=== PATIENT | female | born 1975 | race Caucasian/White ===

== ENCOUNTER 2018-04-30 16:04 | Inpatient (IN) ==
[2018-04-30] MEDS ORDERED: Morphine Inj 4 MG/ML Vial IV.PUSH ONE ×3 (16:18→18:33)
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
[2018-04-30 16:43] LABS: Baso % (Auto) 0.6 % (0.0-2.0); Eos # (Auto) 0.1 th/mm3 (0.0-0.4); Eos % (Auto) 1.5 % (0.0-4.0); Hematocrit 37.8 % (35.0-46.0); Hemoglobin 12.6 gm/dL (11.6-15.3); Lymph # (Auto) 1.7 th/mm3 (1.0-4.8); Lymph % (Auto) 21.5 % (9.0-44.0); Mean Corpuscular HGB Conc 33.3 % (32.0-36.0); Mean Corpuscular Hemoglobin 29.9 pg (27.0-34.0); Mean Corpuscular Volume 89.9 fL (80.0-100.0); Mean Platelet Volume 7.7 fL (7.0-11.0); Mono # (Auto) 0.6 th/mm3 (0.0-0.9); Mono % (Auto) 7.9 % (0.0-8.0); Neut # (Auto) 5.4 th/mm3 (1.8-7.7); Neut % (Auto) 68.5 % (16.0-70.0); Platelet Count 259 th/mm3 (150-450); Red Cell Distribution Width 13.1 % (11.6-17.2); White Blood Count 7.9 th/mm3 (4.0-11.0)
[2018-04-30 16:46] LABS: Bilirubin,Urine Negative (Negative); Clarity,Urine Clear (Clear); Color,Urine Straw (Yellw/Straw); Glucose,Urine (UA) Negative (Negative); Leukocyte Esterase,Urine Negative (Negative); Mucus,Urine Few /lpf (Occasional); Nitrite,Urine Negative (Negative); Specific Gravity,Urine 1.004 (1.002-1.035); Squamous Epithelial Cell,Urine <1 /hpf (0-5)
[2018-04-30 16:52] LABS: Activated Partial Thrombo Time 27.5 sec (23.4-31.7); Prothrombin Time 9.9 sec (9.8-11.6)
[2018-04-30 16:59] LABS: Albumin 3.8 g/dL (3.4-5.0); Anion Gap 6 meq/L (5-15); Aspartate Aminotransferase 73 U/L (15-37); Blood Urea Nitrogen 11 mg/dL (7-18); Calcium 8.7 mg/dL (8.5-10.1); Carbon Dioxide 25.7 meq/L (21.0-32.0); Chloride 105 meq/L (98-107); Glomerular Filtration Rate Greater Than 89 mL/min (>89); Glucose,Random 98 mg/dL (74-106); Potassium 3.4 meq/L (3.5-5.1); Sodium 137 meq/L (136-145)
[2018-04-30 17:00] LABS: Alanine Aminotransferase 89 U/L (10-53)
[2018-04-30 17:02] LABS: Alkaline Phosphatase 173 U/L (45-117)
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
--- NOTE | 2018-04-30 17:21 | XR ---
EXAM DATE: 04/30/2018 5:16 PM EST AGE/SEX: 43 years / Female INDICATIONS: Shortness of breath. CLINICAL DATA: This is the patient's initial encounter. Patient reports that signs and symptoms have been present for 1 day and indicates a pain score of 0/10. MEDICAL/SURGICAL HISTORY: None. None. COMPARISON: No prior exams available for comparison. FINDINGS: Mild ill-defined parenchymal opacities in the left lower lung zone. No pneumothorax or effusion. Card iomediastinal contours are within normal limits. Osseous structures are grossly intact. CONCLUSION: 1. Mild ill-defined parenchymal opacities in the left lower lung zone, presumably atelectasis. Diffe rential considerations include pulmonary contusion in the setting of trauma or pneumonia in the appro priate clinical setting. Electronically signed by: Emeka Ramirez MD 04/30/2018 5:19 PM EST
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
[2018-04-30] MEDS ORDERED: Bisacodyl 10 MG Supp RECTAL PRN (19:53)
[2018-04-30] MEDS ORDERED: Acetaminophen 325 MG Tablet PO PRN (19:53)
--- NOTE | 2018-04-30 20:10 | P.HPIM ---
History of Present Illness Primary Care Physician: UNKNOWN Inpatient Certification: I certify that the inpatient services were ordered in accordance with Medicare regulations governing the order. This includes certification that hospital inpatient services are reasonable and necessary and in the case of services not specified as inpatient-only under 42 CFR 419.22(n), that they are appropriately provided as inpatient services in accordance to with the 2-midnight benchmark under 43 CFR 412.3(e) Estimated Total Length of Stay (Days): 2 Plans for Post Hospital Care: Not yet determined PMFSH - History History Provided By: Patient, Family Member - Medical History Medical History: Medical History (Last Reviewed 04/30/18 @ 16:25 by Ashley Lemons) H/O: hysterectomy Hypothyroid Lupus (systemic lupus erythematosus) Sjoegren syndrome - Surgical History Surgical History: Surgical History (Last Reviewed 04/30/18 @ 16:25 by Ashley Lemons) Gastric bypass status for obesity Hx of cholecystectomy Hx of tonsillectomy - Tobacco History Second Hand Smoke Exposure: No Smoking Status: Former smoker - Alcohol History How Often Do You Have a Drink Containing Alcohol: Never - Substance Use History Substance History: No History of Abuse - Travel History Recent Travel in the [place] Within the Last 8 Weeks: No Recent Travel Out of the Country Within the Last 8 Weeks: No - Immunization History Tetanus Immunization: <5 Years Medications and Allergies Active Medications: Active Medications Acetaminophen (Tylenol) 650 mg PO Q4H PRN PRN Reason: Temp > 100.4 Al Hydroxide/Mg Hydroxide (Milk Of Magnesia Liq) 30 ml PO Q12H PRN PRN Reason: Mild Constipation Bisacodyl (Dulcolax Supp) 10 mg RECTAL DAILY PRN PRN Reason: SEVERE CONSITIPATION Sodium Chloride (Ns Inj) 1,000 mls @ 100 mls/hr IV.CONT .Q10H HOLA Lactulose (Lactulose Liq) 30 ml PO DAILY PRN PRN Reason: SEVERE CONSITIPATION Morphine Sulfate (Morphine Inj) 2 mg IV.PUSH Q4H PRN PRN Reason: PAIN 6-10 Ondansetron HCl (Zofran Inj) 4 mg IV.PUSH Q6H PRN PRN Reason: NAUSEA OR VOMITING Senna/Docusate Sodium (Gracie-Colace) 1 tab PO BID HOLA Sennosides (Senokot) 17.2 mg PO Q12H PRN PRN Reason: Moderate Constipation Sodium Chloride (Ns Flush) 2 ml IV.FLUSH BID HOLA Sodium Chloride (Ns Flush) 2 ml IV.FLUSH PRN PRN PRN Reason: FLUSH AFTER USING IV ACCESS Allergies Allergy/AdvReac Type Severity Reaction Status Date / Time codeine Allergy Itching Verified 04/30/18 16:30 Home Medications Medication Instructions Recorded Confirmed Type calcium carbonate [Calcium 500] 500 mg PO Q4-6H 12/11/17 04/30/18 History cyclobenzaprine 7.5 mg PO TID PRN 12/11/17 04/30/18 History docusate sodium [Stool Softener] 50 mg PO BID 12/11/17 04/30/18 History hydroxychloroquine [Plaquenil] 200 mg PO DAILY 12/11/17 04/30/18 History mycophenolate mofetil [CellCept] 500 mg PO BID 12/11/17 04/30/18 History tramadol 50 mg PO Q4-6H PRN 12/11/17 04/30/18 History levothyroxine 112 mcg PO DAILY 04/30/18 04/30/18 History Exam Vital signs: Vital Signs 04/30/18 16:24 04/30/18 16:54 04/30/18 20:08 Temperature 98.7 F Pulse Rate 73 Respiratory Rate 14 16 18 Blood Pressure 120/67 Pulse Oximetry 98 Intake & Output 04/30/18 04/30/18 05/01/18 06:59 18:59 06:59 Weight 70.307 kg Results - Labs CBC & Chem 7: 04/30/18 16:30 04/30/18 16:30 Labs: Short CBC 04/30/18 Range/Units 16:30 WBC 7.9 (4.0-11.0) th/mm3 Hgb 12.6 (11.6-15.3) gm/dL Hct 37.8 (35.0-46.0) % Plt Count 259 (150-450) th/mm3 BMP 04/30/18 16:30 Sodium 137 Potassium 3.4 L Chloride 105 Carbon Dioxide 25.7 BUN 11 Creatinine 0.61 Calcium 8.7 Liver Function 04/30/18 Range/Units 16:30 Total Bilirubin 0.3 (0.2-1.0) mg/dL AST 73 H (15-37) U/L ALT 89 H (10-53) U/L Alkaline Phosphatase 173 H (45-117) U/L Albumin 3.8 (3.4-5.0) g/dL Urine 04/30/18 Range/Units 16:30 Urine Color Straw (Yellw/Straw) Urine Clarity Clear (Clear) Urine pH 6.0 (5.0-8.5) Ur Specific [place] 1.004 (1.002-1.035) Urine Protein Negative (Neg-Trace) mg/dL Urine Glucose (UA) Negative (Negative) mg/dL - Imaging Impressions Knee X-Ray 04/30/18 16:17 CONCLUSION: 1. Impacted comminuted proximal tibial fracture extending to the tibial plateau and articular surface with associated proximal fibular fracture. Chest X-Ray 04/30/18 16:18 CONCLUSION: 1. Mild ill-defined parenchymal opacities in the left lower lung zone, presumably atelectasis. Differential considerations include pulmonary contusion in the setting of trauma or pneumonia in the appropriate clinical setting. Knee CT 04/30/18 18:48 CONCLUSION: 1. Comminuted lateral tibial plateau/proximal tibial fracture with associated comminuted fracture of the proximal fibula, as above. Chest CT 04/30/18 19:08 CONCLUSION: 1. No acute CT abnormality in the thorax. 2. 6 mm groundglass nodule in the left lower lobe. Consider follow-up CT examination in 6-12 months per 2017 Fleischner criteria. Caprini VTE Risk Assessment Caprini Risk Assessment Model: Point Value = 1 Point Value = 2 Point Value = 3 Point Value = 5 Age 41-60 Minor surgery BMI > 25 kg/m2 Swollen legs Varicose veins or History of unexplained or recurrent spontaneous Oral contraceptives or hormone replacement Sepsis (< 1 month) Serious lung disease, including pneumonia (< 1 month) Abnormal pulmonary function Acute myocardial infarction Congestive heart failure (< 1 month) History of inflammatory bowel disease Medical patient at bed rest Age 61-74 Arthroscopic surgery Major open surgery (> 45 min) Laparoscopic surgery (> 45 min) Malignancy Confined to bed (> 72 hours) Immobilizing plaster cast Central venous access Age >= 75 History of VTE Family history of VTE Factor V Leiden Prothrombin [id number] Lupus anticoagulant Anticardiolipin antibodies Elevated serum homocysteine Heparin-induced thrombocytopenia Other congenital or acquired thrombophilia Stroke (< 1 month) Elective arthroplasty Hip, pelvis, or leg fracture Acute spinal cord injury (< 1 month) Prophylaxis Regimen: Total Risk Factor Score Risk Level Prophylaxis Regimen 0-1 Low Early ambulation 2 Moderate Order ONE of the following: *Sequential Compression Device (SCD) *Heparin 5000 units SQ BID 3-4 Higher Order ONE of the following medications: *Heparin 5000 units SQ TID *Enoxaparin/Lovenox 40 mg SQ daily (WT < 150 kg, CrCl > 30 mL/min) *Enoxaparin/Lovenox 30 mg SQ daily (WT < 150 kg, CrCl > 10-29 mL/min) *Enoxaparin/Lovenox 30 mg SQ BID (WT < 150 kg, CrCl > 30 mL/min) AND/OR *Sequential Compression Device (SCD) 5 or more Highest Order ONE of the following medications: *Heparin 5000 units SQ TID (Preferred with Epidurals) *Enoxaparin/Lovenox 40 mg SQ daily (WT < 150 kg, CrCl > 30 mL/min) *Enoxaparin/Lovenox 30 mg SQ daily (WT < 150 kg, CrCl > 10-29 mL/min) *Enoxaparin/Lovenox 30 mg SQ BID (WT < 150 kg, CrCl > 30 mL/min) AND *Sequential Compression Device (SCD)
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
[2018-04-30] MEDS: Sod Chloride 0.9% Inj 1,000 ML IV.CONT SCH (22:07)
[2018-04-30] MEDS: Senna/Docusate Sodium 8.6/50 MG Tablet PO SCH (22:09)
[2018-04-30] MEDS: Morphine Inj 4 MG/ML Vial IV.PUSH PRN (22:36)
[2018-05-01] MEDS: Morphine Inj 4 MG/ML Vial IV.PUSH PRN ×5 (03:44→23:45)
[2018-05-01] MEDS ORDERED: Chlorhexidine Gluconate 2% 1 Pack (2 Cloths) TOPICAL ONE (04:36)
[2018-05-01] MEDS ORDERED: Sodium Chlor 0.9% Inj 500 ML IV.SIG SCH (05:00)
[2018-05-01] MEDS: Levothyroxine 112 MCG Tablet PO SCH (06:08)
[2018-05-01] MEDS: Sod Chloride 0.9% Inj 1,000 ML IV.CONT SCH (06:09)
[2018-05-01 08:00] LABS: Baso % (Auto) 0.4 % (0.0-2.0); Eos # (Auto) 0.1 th/mm3 (0.0-0.4); Eos % (Auto) 1.9 % (0.0-4.0); Hematocrit 33.3 % (35.0-46.0); Hemoglobin 11.2 gm/dL (11.6-15.3); Lymph # (Auto) 1.3 th/mm3 (1.0-4.8); Lymph % (Auto) 19.6 % (9.0-44.0); Mean Corpuscular HGB Conc 33.6 % (32.0-36.0); Mean Corpuscular Hemoglobin 29.5 pg (27.0-34.0); Mean Corpuscular Volume 87.9 fL (80.0-100.0); Mean Platelet Volume 8.5 fL (7.0-11.0); Mono # (Auto) 0.6 th/mm3 (0.0-0.9); Mono % (Auto) 9.2 % (0.0-8.0); Neut # (Auto) 4.7 th/mm3 (1.8-7.7); Neut % (Auto) 68.9 % (16.0-70.0); Platelet Count 212 th/mm3 (150-450); Red Blood Count 3.79 mil/mm3 (4.00-5.30); Red Cell Distribution Width 13.2 % (11.6-17.2); White Blood Count 6.8 th/mm3 (4.0-11.0)
[2018-05-01] MEDS: Hydroxychloroquine 200 MG Tablet PO SCH ×2 (08:21→20:15)
[2018-05-01] MEDS: Senna/Docusate Sodium 8.6/50 MG Tablet PO SCH ×2 (08:21→20:15)
[2018-05-01 08:27] LABS: Alanine Aminotransferase 364 U/L (10-53); Albumin 3.1 g/dL (3.4-5.0); Alkaline Phosphatase 280 U/L (45-117); Anion Gap 4 meq/L (5-15); Aspartate Aminotransferase 603 U/L (15-37); Blood Urea Nitrogen 12 mg/dL (7-18); Calcium 7.2 mg/dL (8.5-10.1); Carbon Dioxide 26.8 meq/L (21.0-32.0); Chloride 110 meq/L (98-107); Glomerular Filtration Rate Greater Than 89 mL/min (>89); Glucose,Random 94 mg/dL (74-106); Potassium 3.8 meq/L (3.5-5.1); Sodium 141 meq/L (136-145)
[2018-05-01 12:30] LABS: Hepatitits B Surface Antigen Nonreactive (Nonreactive)
[2018-05-01 12:51] LABS: Hepatitis A IgM Antibody Nonreactive (Nonreactive)
[2018-05-01] MEDS: Pilocarpine HCl 5 MG Tablet PO SCH ×2 (13:34→18:25)
--- NOTE | 2018-05-01 13:49 | P.PNFP ---
Subjective Interval history: She had no acute events overnight. She complains of continued pain to the right lower extremity. Ice therapy machine in place. The patient spoke to orthopedics this morning who plans on doing surgery due to the extent of the swelling. She denies fever, chills, lightheadedness, dizziness, shortness of breath, chest pain, palpitations, abdominal pain, nausea, vomiting. She states that she has had elevated liver enzymes in the past. She has a cholecystectomy and reports during the operation they "nicked her hepatic duct. " She is unsure how high her liver enzymes had been elevated, however notes that this issue is not new. <Mega Kidd - 05/01/18 13:48> Results - Labs Result diagrams: 05/02/18 05:40 05/02/18 05:00 <Timmy Santana - 05/02/18 15:03> Abnormal lab results 05/02/18 05/02/18 Range/Units 05:00 05:40 RBC 3.68 L (4.00-5.30) mil/mm3 Hgb 11.0 L (11.6-15.3) gm/dL Hct 32.7 L (35.0-46.0) % Neut % (Auto) 82.3 H (16.0-70.0) % Lymph # (Auto) 0.8 L (1.0-4.8) th/mm3 BUN 5 L (7-18) mg/dL Random Glucose 109 H (74-106) mg/dL Calcium 8.3 L D (8.5-10.1) mg/dL AST 410 H (15-37) U/L ALT 385 H (10-53) U/L Alkaline Phosphatase 327 H (45-117) U/L Albumin 3.2 L (3.4-5.0) g/dL Short CBC 05/02/18 Range/Units 05:40 WBC 8.4 (4.0-11.0) th/mm3 Hgb 11.0 L (11.6-15.3) gm/dL Hct 32.7 L (35.0-46.0) % Plt Count 213 (150-450) th/mm3 BMP 05/02/18 05:00 Sodium 139 Potassium 4.0 Chloride 104 Carbon Dioxide 28.1 BUN 5 L Creatinine 0.56 Calcium 8.3 L D Liver Function 12/03/18 Range/Units 05:00 Total Bilirubin 0.9 (0.2-1.0) mg/dL AST 410 H (15-37) U/L ALT 385 H (10-53) U/L Alkaline Phosphatase 327 H (45-117) U/L Albumin 3.2 L (3.4-5.0) g/dL <Timmy Santana - 05/02/18 15:03> Abnormal lab results 04/30/18 04/30/18 05/01/18 Range/Units 16:30 16:30 06:59 RBC 3.79 L (4.00-5.30) mil/mm3 Hgb 11.2 L (11.6-15.3) gm/dL Hct 33.3 L (35.0-46.0) % Leslie % (Auto) 9.2 H (0.0-8.0) % Potassium 3.4 L (3.5-5.1) meq/L Chloride (98-107) meq/L Anion Gap (5-15) meq/L Creatinine (0.50-1.00) mg/dL Calcium (8.5-10.1) mg/dL Calcium Adj for Albumin (8.5-10.1) mg/dL AST 73 H (15-37) U/L ALT 89 H (10-53) U/L Alkaline Phosphatase 173 H (45-117) U/L Total Protein (6.4-8.2) g/dL Albumin (3.4-5.0) g/dL Urine Ketones Trace H (Negative) mg/dL Urine Mucus Few H (Occasional) /lpf 05/01/18 Range/Units 06:59 RBC (4.00-5.30) mil/mm3 Hgb (11.6-15.3) gm/dL Hct (35.0-46.0) % Leslie % (Auto) (0.0-8.0) % Potassium (3.5-5.1) meq/L Chloride 110 H (98-107) meq/L Anion Gap 4 L (5-15) meq/L Creatinine 0.48 L (0.50-1.00) mg/dL Calcium 7.2 L* D (8.5-10.1) mg/dL Calcium Adj for Albumin 7.8 L (8.5-10.1) mg/dL AST 603 H (15-37) U/L ALT 364 H (10-53) U/L Alkaline Phosphatase 280 H (45-117) U/L Total Protein 6.0 L D (6.4-8.2) g/dL Albumin 3.1 L D (3.4-5.0) g/dL Urine Ketones (Negative) mg/dL Urine Mucus (Occasional) /lpf Short CBC 04/30/18 05/01/18 Range/Units 16:30 06:59 WBC 7.9 6.8 (4.0-11.0) th/mm3 Hgb 12.6 11.2 L (11.6-15.3) gm/dL Hct 37.8 33.3 L (35.0-46.0) % Plt Count 259 212 (150-450) th/mm3 BMP 04/30/18 05/01/18 16:30 06:59 Sodium 137 141 Potassium 3.4 L 3.8 Chloride 105 110 H Carbon Dioxide 25.7 26.8 BUN 11 12 Creatinine 0.61 0.48 L Calcium 8.7 7.2 L* D Liver Function 04/30/18 05/01/18 Range/Units 16:30 06:59 Total Bilirubin 0.3 0.5 (0.2-1.0) mg/dL AST 73 H 603 H (15-37) U/L ALT 89 H 364 H (10-53) U/L Alkaline Phosphatase 173 H 280 H (45-117) U/L Albumin 3.8 3.1 L D (3.4-5.0) g/dL Urine 04/30/18 Range/Units 16:30 Urine Color Straw (Yellw/Straw) Urine Clarity Clear (Clear) Urine pH 6.0 (5.0-8.5) Ur Specific [place] 1.004 (1.002-1.035) Urine Protein Negative (Neg-Trace) mg/dL Urine Glucose (UA) Negative (Negative) mg/dL <Mega Kidd - 05/01/18 13:48> - Imaging Impressions Liver Ultrasound 05/01/18 00:00 CONCLUSION: 1. Mild hepatomegaly. 2. Poor visualization of the pancreas. <Timmy Santana - 05/02/18 15:03> Impressions Knee X-Ray 04/30/18 16:17 CONCLUSION: 1. Impacted comminuted proximal tibial fracture extending to the tibial plateau and articular surface with associated proximal fibular fracture. Chest X-Ray 04/30/18 16:18 CONCLUSION: 1. Mild ill-defined parenchymal opacities in the left lower lung zone, presumably atelectasis. Differential considerations include pulmonary contusion in the setting of trauma or pneumonia in the appropriate clinical setting. Knee CT 04/30/18 18:48 CONCLUSION: 1. Comminuted lateral tibial plateau/proximal tibial fracture with associated comminuted fracture of the proximal fibula, as above. Chest CT 04/30/18 19:08 CONCLUSION: 1. No acute CT abnormality in the thorax. 2. 6 mm groundglass nodule in the left lower lobe. Consider follow-up CT examination in 6-12 months per 2017 Fleischner criteria. <Mega Kidd - 05/01/18 13:48> Physical Exam Vital signs: Vital Signs 05/01/18 16:00 05/01/18 20:16 05/01/18 23:19 Temperature 98.4 F 98.3 F 98.0 F Pulse Rate 80 83 85 Respiratory Rate 18 17 18 Blood Pressure 112/51 L 104/56 L 103/59 L Pulse Oximetry 98 97 100 05/02/18 03:11 05/02/18 08:00 05/02/18 12:00 Temperature 97.3 F L 97.9 F 98.4 F Pulse Rate 83 86 85 Respiratory Rate 17 16 16 Blood Pressure 104/55 L 105/50 L 106/57 L Pulse Oximetry 99 96 100 Intake & Output 05/01/18 05/02/18 05/02/18 18:59 06:59 18:59 Intake Total 300 / 300 480 / 480 Output Total 750 / 750 Balance -450 / -450 480 / 480 Weight 70.3 kg Intake: IV 300 / 300 NS Inj 1,000 ML @ 100 mls/hr IV 300 / 300 .CONT .Q10H [facility] Rx#:[id number] Oral 480 / 480 Output: Urine 750 / 750 Other: # Voids 2 2 Date of Last Bowel Movement 04/30/18 04/30/18 04/30/18 # Bowel Movements 0 <Timmy Santana - 05/02/18 15:03> Vital Signs 12/01/18 16:24 04/30/18 16:54 04/30/18 20:08 Temperature 98.7 F Pulse Rate 73 Respiratory Rate 14 16 18 Blood Pressure 120/67 Pulse Oximetry 98 04/30/18 20:52 04/30/18 21:28 05/01/18 00:00 Temperature 97.6 F 97.7 F Pulse Rate 88 76 83 Respiratory Rate 16 17 18 Blood Pressure 112/51 L 104/52 L 109/52 L Pulse Oximetry 99 99 98 05/01/18 04:22 05/01/18 08:00 05/01/18 12:00 Temperature 97.7 F 97.8 F 97.6 F Pulse Rate 76 73 78 Respiratory Rate 18 16 18 Blood Pressure 91/46 L 104/50 L 104/50 L Pulse Oximetry 99 99 99 Intake & Output 04/30/18 05/01/18 05/01/18 18:59 06:59 18:59 Intake Total 597 / 597 Balance 597 / 597 Weight 70.307 kg 70.307 kg Intake: IV 597 / 597 NS Inj 1,000 ML @ 100 mls/hr IV 597 / 597 .CONT .Q10H [facility] Rx#:[id number] Other: # Voids 1 Date of Last Bowel Movement 04/30/18 04/30/18 Weight On Admission 70.307 kg <Mega Kidd - 05/01/18 13:48> Narrative: General: Well-developed, alert, and in no acute distress. Appears stated age HEENT: Atraumatic, PERRL, non-icteric sclera and no conjunctival injection, moist mucous membranes Neck: Supple, trachea midline Cardiac: Regular rate and rhythm without murmur Pulmonary: Non-labored breathing. Lungs clear to auscultation bilaterally with good air movement Abdomen: Normal bowel sounds, soft and non-tender without rebound or guarding Extremities: No pedal edema, 2+ pedal pulses, capillary refill less than 2 seconds. Neurovascularly intact distal to the injury. Ice therapy machine is in place over the right leg. <Mega Kidd - 05/01/18 13:48> Assessment and Plan - Assessment (1) Closed fracture of proximal end of right tibia Code(s): S82.101A - Unspecified fracture of upper end of right tibia, initial encounter for closed fracture Status: Acute (2) Hypothyroid Code(s): E03.9 - Hypothyroidism, unspecified Status: Acute (3) Sjogrens syndrome Code(s): M35.00 - Sicca syndrome, unspecified Status: Acute (4) Lupus Code(s): L93.0 - Discoid lupus erythematosus Status: Acute (5) Elevated liver enzymes Code(s): R74.8 - Abnormal levels of other serum enzymes Status: Acute <Timmy Santana - 05/02/18 15:03> (1) Closed fracture of proximal end of right tibia Code(s): S82.101A - Unspecified fracture of upper end of right tibia, initial encounter for closed fracture Status: Acute Plan: Closed fracture of proximal end of her right tibia and fibula. -Orthopedic surgery consulted, appreciate recommendations -Original plan had been for surgical intervention today, however she states this has been delayed due to the extent of the swelling -Ice therapy machine in place (2) Hypothyroid Code(s): E03.9 - Hypothyroidism, unspecified Status: Acute Plan: History of hypothyroidism -Continue levothyroxine 112 mcg daily -Normal TSH (3) Sjogrens syndrome Code(s): M35.00 - Sicca syndrome, unspecified Status: Acute Plan: History of Sjogren's. -Monitor and treat symptoms as needed (4) Lupus Code(s): L93.0 - Discoid lupus erythematosus Status: Acute Plan: History of lupus. -Continue home medications, CellCept, Plaquenil -Reports no current symptoms (5) Elevated liver enzymes Code(s): R74.8 - Abnormal levels of other serum enzymes Status: Acute Plan: AST 79, ALT 89, and alk phos 173 yesterday. Today was found to be AST of 603, ALT of 364, and alk phos of 280. -Lowest MAP was 61, making shock liver unlikely -We are unsure if this new elevation is real, repeat CMP ordered. -She does report history of liver damage secondary to a "nicked hepatic duct" during a cholecystectomy -Ultrasound of the right upper quadrant ordered -Hepatitis panel negative -If liver enzymes remain elevated and no causes found, will consider her autoimmune diseases as a cause <Mega Kidd - 05/01/18 13:49> - Assessment and Plan Fluids: Adequate p.o. intake Electrolytes: monitor and replete as needed Nutrition: Regular diet GI prophylaxis: not indicated VTE prophylaxis: SCD on left side <Mega Kidd - 05/01/18 13:54> - Attending Attestation See the residents documentation for details. I saw and evaluated the patient regarding the gould portions of this evaluation and agree with the residents findings and plans as written. Parts of this note were created using [employer] voice recognition software program. While efforts were made to correct any mistakes made by this software, some mistakes, errors, and omissions may remain in the final note that were not caught when the note was originally created. Plan of care was discussed and agreed upon with the patient as specifically documented in the above note. An opportunity to ask questions with explanation was provided. Patient voiced understanding on all information reviewed and discussed. <Timmy Santana - 05/02/18 15:03> <Mega Kidd - Last Filed: 05/01/18 13:49> (1) Closed fracture of proximal end of right tibia Qualifiers: Encounter type: initial encounter Fracture morphology: unspecified fracture morphology Qualified Code(s): S82.101A - Unspecified fracture of upper end of right tibia, initial encounter for closed fracture <Timmy Santana - Last Filed: 05/02/18 15:03> (1) Closed fracture of proximal end of right tibia Qualifiers: Qualified Code(s): S82.101A - Unspecified fracture of upper end of right tibia , initial encounter for closed fracture <Mega Kidd - Last Filed: 05/01/18 13:49> (1) Closed fracture of proximal end of right tibia Qualifiers: Encounter type: initial encounter Fracture morphology: unspecified fracture morphology Qualified Code(s): S82.101A - Unspecified fracture of upper end of right tibia, initial encounter for closed fracture <Timmy Santana - Last Filed: 05/02/18 15:03> (1) Closed fracture of proximal end of right tibia Qualifiers: Qualified Code(s): S82.101A - Unspecified fracture of upper end of right tibia , initial encounter for closed fracture
[2018-05-01 14:07] LABS: Albumin 3.2 g/dL (3.4-5.0); Anion Gap 3 meq/L (5-15); Aspartate Aminotransferase 493 U/L (15-37); Blood Urea Nitrogen 9 mg/dL (7-18); Calcium 7.5 mg/dL (8.5-10.1); Carbon Dioxide 29.7 meq/L (21.0-32.0); Chloride 109 meq/L (98-107); Glomerular Filtration Rate Greater Than 89 mL/min (>89); Glucose,Random 83 mg/dL (74-106); Potassium 4.2 meq/L (3.5-5.1); Sodium 142 meq/L (136-145)
[2018-05-01 14:09] LABS: Alanine Aminotransferase 361 U/L (10-53); Alkaline Phosphatase 286 U/L (45-117); Total Protein 6.2 g/dL (6.4-8.2)
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
--- NOTE | 2018-05-01 15:52 | US ---
EXAM DATE: 05/01/2018 3:42 PM EST AGE/SEX: 43 years / Female INDICATIONS: Elevated lab values. CLINICAL DATA: This is the patient's initial encounter. Patient reports that signs and symptoms have been present for 2 days and indicates a pain score of 2/10. MEDICAL/SURGICAL HISTORY: Hypothyroidism. Lupus. Hysterectomy. Cholecystectomy. Tonsillectom y. Gastric bypass. COMPARISON: No prior exams available for comparison. MEASUREMENTS: Liver:__ 16.1 cm. Common Bile Duct:__ 6mm. Right Kidney:__ 11.6 x 5.7 x 4.6 cm. FINDINGS: Liver: Mild hepatomegaly is noted. Normal echotexture without focal lesion or ductal dilatation. Portal Vein: Hepatopedal flow seen in portal vein. Common Duct: No intraluminal mass or stone visualized. Gallbladder: Surgically absent. Pancreas: Not well visualized. Right Kidney: Normal echotexture and cortical thickness. No mass or hydronephrosis. Other: None. CONCLUSION: 1. Mild hepatomegaly. 2. Poor visualization of the pancreas. Electronically signed by: Kwasi Campo MD 05/01/2018 3:51 PM EST
[2018-05-01] MEDS ORDERED: Morphine Inj 4 MG/ML Vial IV.PUSH PRN ×2 (18:17→20:00)
[2018-05-01] MEDS: Montelukast 10 MG Tablet PO SCH (18:24)
[2018-05-02] MEDS: Docusate Sodium Liq 100 MG/10 ML UDC PO SCH ×3 (01:03→21:09)
[2018-05-02] MEDS: Morphine Inj 4 MG/ML Vial IV.PUSH PRN ×5 (03:23→20:17)
[2018-05-02 06:29] LABS: Baso % (Auto) 0.3 % (0.0-2.0); Eos % (Auto) 0.5 % (0.0-4.0); Hematocrit 32.7 % (35.0-46.0); Lymph # (Auto) 0.8 th/mm3 (1.0-4.8); Lymph % (Auto) 9.3 % (9.0-44.0); Mean Corpuscular HGB Conc 33.5 % (32.0-36.0); Mean Corpuscular Hemoglobin 29.8 pg (27.0-34.0); Mean Corpuscular Volume 88.9 fL (80.0-100.0); Mean Platelet Volume 8.4 fL (7.0-11.0); Mono # (Auto) 0.6 th/mm3 (0.0-0.9); Mono % (Auto) 7.6 % (0.0-8.0); Neut # (Auto) 6.9 th/mm3 (1.8-7.7); Neut % (Auto) 82.3 % (16.0-70.0); Platelet Count 213 th/mm3 (150-450); Red Blood Count 3.68 mil/mm3 (4.00-5.30); Red Cell Distribution Width 13.4 % (11.6-17.2); White Blood Count 8.4 th/mm3 (4.0-11.0)
[2018-05-02] MEDS ORDERED: Ketorolac Inj 30 MG/ML (IVP) Vial IV.PUSH PRN (06:29)
[2018-05-02] MEDS ORDERED: Enoxaparin Inj 30 MG/0.3 ML Syringe SQ ONE (06:31)
[2018-05-02] MEDS: Levothyroxine 112 MCG Tablet PO SCH (06:46)
[2018-05-02 06:55] LABS: Alanine Aminotransferase 385 U/L (10-53); Albumin 3.2 g/dL (3.4-5.0); Alkaline Phosphatase 327 U/L (45-117); Anion Gap 7 meq/L (5-15); Aspartate Aminotransferase 410 U/L (15-37); Blood Urea Nitrogen 5 mg/dL (7-18); Calcium 8.3 mg/dL (8.5-10.1); Carbon Dioxide 28.1 meq/L (21.0-32.0); Chloride 104 meq/L (98-107); Glomerular Filtration Rate Greater Than 89 mL/min (>89); Glucose,Random 109 mg/dL (74-106); Sodium 139 meq/L (136-145); Total Protein 6.5 g/dL (6.4-8.2)
[2018-05-02] MEDS: Senna/Docusate Sodium 8.6/50 MG Tablet PO SCH ×2 (09:23→21:09)
[2018-05-02] MEDS: Pilocarpine HCl 5 MG Tablet PO SCH ×3 (09:23→17:36)
[2018-05-02] MEDS: Hydroxychloroquine 200 MG Tablet PO SCH ×2 (09:23→21:08)
--- NOTE | 2018-05-02 12:15 | P.PNFP ---
Subjective Interval history: Patient seen and examined this morning. Denies nausea, vomiting, fever, chills, abdominal pain, chest pain, shortness of breath, lightheadedness, dizziness. Patient reports continued pain in her right leg. Notes normal sensation in her feet, increased pain under her right heel. Discussed elevated LFTs with patient. She reports that after her cholecystectomy with injured right biliary duct she has had issues with elevated LFTs. She reports that she has been to an outpatient GI with LFTs in the 400s. States that he told her they will likely never return to normal. However they did down trend from 400 previously. No acute events overnight. No other complaints today. <Mike Mendoza - 05/02/18 12:15> Results - Labs Result diagrams: 05/02/18 05:40 05/02/18 05:00 <Timmy Santana - 05/02/18 15:27> Abnormal lab results 05/02/18 05/02/18 Range/Units 05:00 05:40 RBC 3.68 L (4.00-5.30) mil/mm3 Hgb 11.0 L (11.6-15.3) gm/dL Hct 32.7 L (35.0-46.0) % Neut % (Auto) 82.3 H (16.0-70.0) % Lymph # (Auto) 0.8 L (1.0-4.8) th/mm3 BUN 5 L (7-18) mg/dL Random Glucose 109 H (74-106) mg/dL Calcium 8.3 L D (8.5-10.1) mg/dL AST 410 H (15-37) U/L ALT 385 H (10-53) U/L Alkaline Phosphatase 327 H (45-117) U/L Albumin 3.2 L (3.4-5.0) g/dL Short CBC 05/02/18 Range/Units 05:40 WBC 8.4 (4.0-11.0) th/mm3 Hgb 11.0 L (11.6-15.3) gm/dL Hct 32.7 L (35.0-46.0) % Plt Count 213 (150-450) th/mm3 [facility] 05/02/18 05:00 Sodium 139 Potassium 4.0 Chloride 104 Carbon Dioxide 28.1 BUN 5 L Creatinine 0.56 Calcium 8.3 L D Liver Function 05/02/18 Range/Units 05:00 Total Bilirubin 0.9 (0.2-1.0) mg/dL AST 410 H (15-37) U/L ALT 385 H (10-53) U/L Alkaline Phosphatase 327 H (45-117) U/L Albumin 3.2 L (3.4-5.0) g/dL <SantanaTimmy - 05/02/18 15:27> Abnormal lab results 05/01/18 05/02/18 05/02/18 Range/Units 11:44 05:00 05:40 RBC 3.68 L (4.00-5.30) mil/mm3 Hgb 11.0 L (11.6-15.3) gm/dL Hct 32.7 L (35.0-46.0) % Neut % (Auto) 82.3 H (16.0-70.0) % Lymph # (Auto) 0.8 L (1.0-4.8) th/mm3 Chloride 109 H (98-107) meq/L Anion Gap 3 L (5-15) meq/L BUN 5 L (7-18) mg/dL Creatinine 0.48 L (0.50-1.00) mg/dL Random Glucose 109 H (74-106) mg/dL Calcium 7.5 L 8.3 L D (8.5-10.1) mg/dL AST 493 H 410 H (15-37) U/L ALT 361 H 385 H (10-53) U/L Alkaline Phosphatase 286 H 327 H (45-117) U/L Total Protein 6.2 L (6.4-8.2) g/dL Albumin 3.2 L 3.2 L (3.4-5.0) g/dL Short CBC 05/02/18 Range/Units 05:40 WBC 8.4 (4.0-11.0) th/mm3 Hgb 11.0 L (11.6-15.3) gm/dL Hct 32.7 L (35.0-46.0) % Plt Count 213 (150-450) th/mm3 BMP 05/01/18 05/02/18 11:44 05:00 Sodium 142 139 Potassium 4.2 4.0 Chloride 109 H 104 Carbon Dioxide 29.7 28.1 BUN 9 5 L Creatinine 0.48 L 0.56 Calcium 7.5 L 8.3 L D Liver Function 05/01/18 05/02/18 Range/Units 11:44 05:00 Total Bilirubin 0.3 0.9 (0.2-1.0) mg/dL AST 493 H 410 H (15-37) U/L ALT 361 H 385 H (10-53) U/L Alkaline Phosphatase 286 H 327 H (45-117) U/L Albumin 3.2 L 3.2 L (3.4-5.0) g/dL <Mike Mendoza - 05/02/18 12:15> - Imaging Impressions Liver Ultrasound 05/01/18 00:00 CONCLUSION: 1. Mild hepatomegaly. 2. Poor visualization of the pancreas. <Timmy Santana - 05/02/18 15:27> Impressions Liver Ultrasound 05/01/18 00:00 CONCLUSION: 1. Mild hepatomegaly. 2. Poor visualization of the pancreas. <Mike Mendoza - 05/02/18 12:15> Physical Exam Vital signs: Vital Signs 05/01/18 16:00 05/01/18 20:16 05/01/18 23:19 Temperature 98.4 F 98.3 F 98.0 F Pulse Rate 80 83 85 Respiratory Rate 18 17 18 Blood Pressure 112/51 L 104/56 L 103/59 L Pulse Oximetry 98 97 100 05/02/18 03:11 05/02/18 08:00 05/02/18 12:00 Temperature 97.3 F L 97.9 F 98.4 F Pulse Rate 83 86 85 Respiratory Rate 17 16 16 Blood Pressure 104/55 L 105/50 L 106/57 L Pulse Oximetry 99 96 100 Intake & Output 05/01/18 05/02/18 05/02/18 18:59 06:59 18:59 Intake Total 300 / 300 480 / 480 Output Total 750 / 750 Balance -450 / -450 480 / 480 Weight 70.3 kg Intake: IV 300 / 300 NS Inj 1,000 ML @ 100 mls/hr IV 300 / 300 .CONT .Q10H [facility] Rx#:[id number] Oral 480 / 480 Output: Urine 750 / 750 Other: # Voids 2 2 Date of Last Bowel Movement 04/30/18 04/30/18 04/30/18 # Bowel Movements 0 <Timmy Santana - 05/02/18 15:27> Vital Signs 05/01/18 16:00 05/01/18 20:16 05/01/18 23:19 Temperature 98.4 F 98.3 F 98.0 F Pulse Rate 80 83 85 Respiratory Rate 18 17 18 Blood Pressure 112/51 L 104/56 L 103/59 L Pulse Oximetry 98 97 100 05/02/18 03:11 05/02/18 08:00 Temperature 97.3 F L 97.9 F Pulse Rate 83 86 Respiratory Rate 17 16 Blood Pressure 104/55 L 105/50 L Pulse Oximetry 99 96 Intake & Output 05/01/18 05/02/18 05/02/18 18:59 06:59 18:59 Intake Total 300 / 300 480 / 480 Output Total 750 / 750 Balance -450 / -450 480 / 480 Weight 70.3 kg Intake: IV 300 / 300 NS Inj 1,000 ML @ 100 mls/hr IV 300 / 300 .CONT .Q10H [facility] Rx#:[id number] Oral 480 / 480 Output: Urine 750 / 750 Other: # Voids 2 2 Date of Last Bowel Movement 04/30/18 04/30/18 04/30/18 # Bowel Movements 0 <Mike Mendoza - 05/02/18 12:15> Narrative: General: Well-developed, alert, and in no acute distress. Appears stated age HEENT: Atraumatic, PERRL, non-icteric sclera and no conjunctival injection, moist mucous membranes Neck: Supple, trachea midline Cardiac: Regular rate and rhythm without murmur Pulmonary: Non-labored breathing. Lungs clear to auscultation bilaterally with good air movement Abdomen: Normal bowel sounds, soft and non-tender without rebound or guarding Extremities: No pedal edema, 2+ pedal pulses, capillary refill less than 2 seconds. Neurovascularly intact distal to the injury. Ice therapy machine is in place over the right leg. <Mike Mendoza - 05/02/18 12:15> Assessment and Plan - Assessment (1) Closed fracture of proximal end of right tibia Code(s): S82.101A - Unspecified fracture of upper end of right tibia, initial encounter for closed fracture Status: Acute (2) Hypothyroid Code(s): E03.9 - Hypothyroidism, unspecified Status: Acute (3) Sjogrens syndrome Code(s): M35.00 - Sicca syndrome, unspecified Status: Acute (4) Lupus Code(s): L93.0 - Discoid lupus erythematosus Status: Acute (5) Elevated liver enzymes Code(s): R74.8 - Abnormal levels of other serum enzymes Status: Acute <Timmy Santana - 05/02/18 15:27> (1) Closed fracture of proximal end of right tibia Code(s): S82.101A - Unspecified fracture of upper end of right tibia, initial encounter for closed fracture Status: Acute Plan: Closed fracture of proximal end of her right tibia and fibula. -Orthopedic surgery consulted, appreciate recommendations -Surgical intervention delayed due to leg swelling -Ice therapy machine in place (2) Hypothyroid Code(s): E03.9 - Hypothyroidism, unspecified Status: Acute Plan: History of hypothyroidism -Continue levothyroxine 112 mcg daily -Normal TSH (3) Sjogrens syndrome Code(s): M35.00 - Sicca syndrome, unspecified Status: Acute Plan: History of Sjogren's. -Monitor and treat symptoms as needed (4) Lupus Code(s): L93.0 - Discoid lupus erythematosus Status: Acute Plan: History of lupus. -Continue home medications, CellCept, Plaquenil -Reports no current symptoms (5) Elevated liver enzymes Code(s): R74.8 - Abnormal levels of other serum enzymes Status: Acute Plan: Elevated liver enzymes. 05/02/18 AST 385 ALT 327, downtrending. Hepatitis panel negative.She does report history of liver damage secondary to a "nicked hepatic duct" during a cholecystectomy. Ultrasound shows mild hepatomegaly. -Lowest MAP was 61, making shock liver unlikely -Consult GI -If liver enzymes remain elevated and no causes found, will consider her autoimmune diseases as a cause <Mike Mendoza - 05/02/18 12:07> - Assessment and Plan Fluids: Adequate p.o. intake Electrolytes: monitor and replete as needed Nutrition: Regular diet GI prophylaxis: not indicated VTE prophylaxis: SCD on left side <Mike Mendoza - 05/02/18 12:15> - Attending Attestation See the residents documentation for details. I saw and evaluated the patient regarding the gould portions of this evaluation and agree with the residents findings and plans as written. Parts of this note were created using [employer] voice recognition software program. While efforts were made to correct any mistakes made by this software, some mistakes, errors, and omissions may remain in the final note that were not caught when the note was originally created. Plan of care was discussed and agreed upon with the patient as specifically documented in the above note. An opportunity to ask questions with explanation was provided. Patient voiced understanding on all information reviewed and discussed. <Timmy Santana - 05/02/18 15:27> <Mike Mendoza - Last Filed: 05/02/18 12:07> (1) Closed fracture of proximal end of right tibia Qualifiers: Encounter type: initial encounter Fracture morphology: unspecified fracture morphology Qualified Code(s): S82.101A - Unspecified fracture of upper end of right tibia, initial encounter for closed fracture <SantanaTimmy - Last Filed: 05/02/18 15:27> (1) Closed fracture of proximal end of right tibia Qualifiers: Encounter type: initial encounter Fracture morphology: unspecified fracture morphology Qualified Code(s): S82.101A - Unspecified fracture of upper end of right tibia, initial encounter for closed fracture <Failderrek,Brian - Last Filed: 05/02/18 12:07> (1) Closed fracture of proximal end of right tibia Qualifiers: Encounter type: initial encounter Fracture morphology: unspecified fracture morphology Qualified Code(s): S82.101A - Unspecified fracture of upper end of right tibia, initial encounter for closed fracture <Timmy Santana - Last Filed: 05/02/18 15:27> (1) Closed fracture of proximal end of right tibia Qualifiers: Encounter type: initial encounter Fracture morphology: unspecified fracture morphology Qualified Code(s): S82.101A - Unspecified fracture of upper end of right tibia, initial encounter for closed fracture
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
[2018-05-02] MEDS: Montelukast 10 MG Tablet PO SCH (17:37)
[2018-05-02 17:38] LABS: Chol/HDL Ratio 1.85 Ratio
[2018-05-03] MEDS: Morphine Inj 4 MG/ML Vial IV.PUSH PRN ×5 (00:12→22:14)
[2018-05-03 04:22] LABS: Hematocrit 32.8 % (35.0-46.0); Hemoglobin 10.8 gm/dL (11.6-15.3); Mean Corpuscular Hemoglobin 29.4 pg (27.0-34.0); Mean Corpuscular Volume 89.2 fL (80.0-100.0); Mean Platelet Volume 8.2 fL (7.0-11.0); Platelet Count 189 th/mm3 (150-450); Red Blood Count 3.67 mil/mm3 (4.00-5.30); Red Cell Distribution Width 13.2 % (11.6-17.2); White Blood Count 6.5 th/mm3 (4.0-11.0)
[2018-05-03 04:53] LABS: Alanine Aminotransferase 353 U/L (10-53); Anion Gap 7 meq/L (5-15); Aspartate Aminotransferase 272 U/L (15-37); Blood Urea Nitrogen 5 mg/dL (7-18); Calcium 7.8 mg/dL (8.5-10.1); Carbon Dioxide 27.3 meq/L (21.0-32.0); Chloride 104 meq/L (98-107); Glomerular Filtration Rate Greater Than 89 mL/min (>89); Glucose,Random 104 mg/dL (74-106); Potassium 3.5 meq/L (3.5-5.1); Sodium 138 meq/L (136-145)
[2018-05-03 04:54] LABS: Alkaline Phosphatase 352 U/L (45-117); Total Protein 6.4 g/dL (6.4-8.2)
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
[2018-05-03] MEDS: Levothyroxine 112 MCG Tablet PO SCH (06:44)
[2018-05-03] MEDS ORDERED: Enoxaparin Inj 30 MG/0.3 ML Syringe SQ ONE (07:15)
[2018-05-03] MEDS: Ketorolac Inj 30 MG/ML (IVP) Vial IV.PUSH SCH ×2 (07:59→14:10)
[2018-05-03] MEDS: Senna/Docusate Sodium 8.6/50 MG Tablet PO SCH ×2 (09:00→20:45)
[2018-05-03] MEDS: Hydroxychloroquine 200 MG Tablet PO SCH ×2 (09:00→20:46)
[2018-05-03] MEDS: Docusate Sodium Liq 100 MG/10 ML UDC PO SCH ×2 (09:00→20:45)
[2018-05-03] MEDS: Pilocarpine HCl 5 MG Tablet PO SCH ×3 (09:00→18:00)
--- NOTE | 2018-05-03 11:49 | MR ---
EXAM DATE: 05/03/2018 10:11 AM EST AGE/SEX: 43 years / Female INDICATIONS: Abdominal pain. CLINICAL DATA: This is the patient's initial encounter. Patient reports that signs and symptoms have been present for 3 days and indicates a pain score of 4/10. MEDICAL/SURGICAL HISTORY: Lupus. Cholecystectomy. Hysterectomy. Cholecystectomy with rupture o f hepatic duct. [place] [facility] [place]. . TECHNIQUE: Multiplanar, multisequence images of the abdomen were obtained without contrast including dedicated cholangiographic images. FINDINGS: Liver: The liver measures approximately 18.5 cm in length. Overall signal intensity is within normal limits without fat or iron deposition appreciated. No focal lesion is seen on this noncontrast exami nation. Intrahepatic Bile Ducts: The central intrahepatic bile ducts are mildly distended. No stricture is i dentified. Common Bile Duct: The common hepatic duct measures approximately 8 mm, the proximal common bile duct measures approximately 10 mm in the distal common bile duct measures 6 mm. No stone or filling defec t is identified. Cystic duct remnant is distended. Gallbladder: Gallbladder is absent with clips in the gallbladder fossa. Pancreas: Pancreas demonstrates normal signal intensity without a lesion identified on this noncontr ast examination. Main pancreatic duct measures between 1 and 2 mm throughout. No cystic lesion is sawyer ntified. Other: The kidneys, adrenal glands, and spleen demonstrate no abnormality. Aorta is nonaneurysmal. No lymphadenopathy is identified. CONCLUSION: 1. No acute finding is identified to explain the abdominal pain. Intra and extrahepatic bile ducts a re within the range of normal since the patient is post cholecystectomy. No common duct stone is pres ent. 2. No pancreas abnormality is identified. Electronically signed by: Luciano Ribeiro MD 05/03/2018 11:48 AM EST
--- NOTE | 2018-05-03 11:59 | P.PNFP ---
Subjective Interval history: No acute events overnight. She has continued pain in the right lower extremity. She has no new complaints this morning. She denies fever, chills, lightheadedness, dizziness, nausea, vomiting, chest pain, palpitations, shortness of breath, abdominal pain. <Mega Kidd - 05/03/18 11:58> Results - Labs Result diagrams: 05/04/18 04:46 05/04/18 04:46 <Timmy Santana - 05/04/18 12:02> Abnormal lab results 05/04/18 05/04/18 Range/Units 04:46 04:46 RBC 3.58 L (4.00-5.30) mil/mm3 Hgb 10.6 L (11.6-15.3) gm/dL Hct 31.6 L (35.0-46.0) % BUN 6 L (7-18) mg/dL Calcium 8.0 L (8.5-10.1) mg/dL AST 170 H (15-37) U/L ALT 269 H (10-53) U/L Alkaline Phosphatase 357 H (45-117) U/L Total Protein 5.9 L (6.4-8.2) g/dL Albumin 2.9 L (3.4-5.0) g/dL Short CBC 05/04/18 Range/Units 04:46 WBC 4.2 (4.0-11.0) th/mm3 Hgb 10.6 L (11.6-15.3) gm/dL Hct 31.6 L (35.0-46.0) % Plt Count 204 (150-450) th/mm3 [facility] 05/04/18 04:46 Sodium 139 Potassium 4.0 Chloride 104 Carbon Dioxide 29.3 BUN 6 L Creatinine 0.50 Calcium 8.0 L Liver Function 05/04/18 Range/Units 04:46 Total Bilirubin 0.5 (0.2-1.0) mg/dL AST 170 H (15-37) U/L ALT 269 H (10-53) U/L Alkaline Phosphatase 357 H (45-117) U/L Albumin 2.9 L (3.4-5.0) g/dL <Timmy Santana - 05/04/18 12:02> Abnormal lab results 05/02/18 05/03/1818 Range/Units 05:00 04:10 04:14 RBC 3.67 L (4.00-5.30) mil/mm3 Hgb 10.8 L (11.6-15.3) gm/dL Hct 32.8 L (35.0-46.0) % BUN 5 L (7-18) mg/dL Creatinine 0.44 L (0.50-1.00) mg/dL Calcium 7.8 L (8.5-10.1) mg/dL AST 272 H (15-37) U/L ALT 353 H (10-53) U/L Alkaline Phosphatase 352 H (45-117) U/L Albumin 3.0 L (3.4-5.0) g/dL HDL Cholesterol 70.0 H (40.0-60.0) mg/dL Short CBC 05/03/18 Range/Units 04:10 WBC 6.5 (4.0-11.0) th/mm3 Hgb 10.8 L (11.6-15.3) gm/dL Hct 32.8 L (35.0-46.0) % Plt Count 189 (150-450) th/mm3 BMP 05/03/18 04:14 Sodium 138 Potassium 3.5 Chloride 104 Carbon Dioxide 27.3 BUN 5 L Creatinine 0.44 L Calcium 7.8 L Liver Function 05/03/18 Range/Units 04:14 Total Bilirubin 0.4 (0.2-1.0) mg/dL AST 272 H (15-37) U/L ALT 353 H (10-53) U/L Alkaline Phosphatase 352 H (45-117) U/L Albumin 3.0 L (3.4-5.0) g/dL <Mega Kidd - 05/03/18 11:58> Physical Exam Vital signs: Vital Signs 05/03/18 16:00 05/03/18 20:34 05/04/18 00:00 Temperature 97.6 F 98.1 F 97.6 F Pulse Rate 84 85 71 Respiratory Rate 18 16 16 Blood Pressure 110/63 106/56 L Pulse Oximetry 98 99 97 05/04/18 03:28 05/04/18 08:00 05/04/18 10:22 Temperature 97.4 F L 97.2 F L 97.5 F L Pulse Rate 63 73 85 Respiratory Rate 17 16 16 Blood Pressure 97/54 L 106/53 L 132/62 Pulse Oximetry 97 100 99 05/04/18 10:30 05/04/18 10:45 05/04/18 11:00 Temperature Pulse Rate 77 78 76 Respiratory Rate 17 17 17 Blood Pressure 120/67 117/65 110/62 Pulse Oximetry 100 98 98 05/04/18 11:15 05/04/18 11:21 Temperature 97.5 F L Pulse Rate 74 Respiratory Rate 17 17 Blood Pressure 117/66 Pulse Oximetry 98 Intake & Output 05/03/18 05/04/18 05/04/18 18:59 06:59 18:59 Intake Total 300 / 300 900 / 900 Output Total 820 / 820 50 / 50 Balance -520 / -520 850 / 850 Weight 75.4 kg Intake: IV 900 / 900 LR 1000 mL Inj 1,000 ML @ 30 900 / 900 mls/hr IV.SIG .Q24H [facility] Rx#: [id number] Oral 300 / 300 Output: Urine 820 / 820 Stool 0 / 0 Estimated Blood Loss 50 / 50 Other: Date of Last Bowel Movement 04/30/18 04/30/18 04/30/18 <Timmy Santana - 05/04/18 12:02> Vital Signs 05/02/18 12:00 05/02/18 16:00 05/02/18 19:40 Temperature 98.4 F 98.3 F 98.8 F Pulse Rate 85 79 79 Respiratory Rate 16 14 18 Blood Pressure 106/57 L 115/62 120/63 Pulse Oximetry 100 100 99 05/03/18 00:30 05/03/18 04:30 Temperature 98.8 F 97.8 F Pulse Rate 79 81 Respiratory Rate 17 17 Blood Pressure 108/60 111/57 L Pulse Oximetry 97 97 Intake & Output 05/02/18 05/03/18 05/03/18 18:59 06:59 18:59 Intake Total 960 / 960 30 / 30 Balance 960 / 960 30 / 30 Weight 70.3 kg Intake: Oral 960 / 960 30 30 Other: # Voids 3 3 Date of Last Bowel Movement 04/30/18 04/30/18 04/30/18 # Bowel Movements 0 0 <Mega Kidd - 05/03/18 11:58> Narrative: General: Well-developed, alert, and in no acute distress. Appears stated age HEENT: Atraumatic, moist mucous membranes Neck: Supple, trachea midline Cardiac: Regular rate and rhythm without murmur Pulmonary: Non-labored breathing. Lungs clear to auscultation bilaterally with good air movement Abdomen: Normal bowel sounds, soft and non-tender without rebound or guarding Extremities: Mild right sided pedal edema, 2+ pedal pulses, capillary refill less than 2 seconds. Neurovascularly intact distal to the injury. Brace and ice therapy machine is in place over the right leg. <Mega Kidd - 05/03/18 11:58> Assessment and Plan - Assessment (1) Closed fracture of proximal end of right tibia Code(s): S82.101A - Unspecified fracture of upper end of right tibia, initial encounter for closed fracture Status: Acute (2) Elevated liver enzymes Code(s): R74.8 - Abnormal levels of other serum enzymes Status: Acute (3) Hypothyroid Code(s): E03.9 - Hypothyroidism, unspecified Status: Acute (4) Sjogrens syndrome Code(s): M35.00 - Sicca syndrome, unspecified Status: Acute (5) Lupus Code(s): L93.0 - Discoid lupus erythematosus Status: Acute <Timmy Santana - 05/04/18 12:02> (1) Closed fracture of proximal end of right tibia Code(s): S82.101A - Unspecified fracture of upper end of right tibia, initial encounter for closed fracture Status: Acute Plan: Closed fracture of proximal end of her right tibia and fibula. -Orthopedic surgery consulted, appreciate recommendations -Surgical intervention delayed due to leg swelling -Ice therapy machine in place (2) Elevated liver enzymes Code(s): R74.8 - Abnormal levels of other serum enzymes Status: Acute Plan: Elevated liver enzymes. 05/03/18 AST 272 ALT 353 alk phos 352, downtrending. Hepatitis panel negative. She does report history of liver damage secondary to a "nicked hepatic duct" during a cholecystectomy. Ultrasound shows mild hepatomegaly. Lowest MAP was 61, making shock liver unlikely -Consult GI, appreciate recommendations -No acute disease identified on MRCP, intra-and extrahepatic bile ducts are within the normal range considering her prior cholecystectomy. -Autoimmune workup pending (3) Hypothyroid Code(s): E03.9 - Hypothyroidism, unspecified Status: Acute Plan: History of hypothyroidism -Continue levothyroxine 112 mcg daily -Normal TSH (4) Sjogrens syndrome Code(s): M35.00 - Sicca syndrome, unspecified Status: Acute Plan: History of Sjogren's. -Monitor and treat symptoms as needed (5) Lupus Code(s): L93.0 - Discoid lupus erythematosus Status: Acute Plan: History of lupus. -Continue home medications, CellCept, Plaquenil -Reports no current symptoms <Mega Kidd - 05/03/18 11:39> - Assessment and Plan Fluids: Adequate p.o. intake Electrolytes: monitor and replete as needed Nutrition: Regular diet (intermittent n.p.o. after midnight, no current date scheduled for surgery) GI prophylaxis: not indicated VTE prophylaxis: SCD on left side <Mega Kidd - 05/03/18 11:58> - Attending Attestation See the residents documentation for details. I saw and evaluated the patient regarding the gould portions of this evaluation and agree with the residents findings and plans as written. Parts of this note were created using [employer] voice recognition software program. While efforts were made to correct any mistakes made by this software, some mistakes, errors, and omissions may remain in the final note that were not caught when the note was originally created. Plan of care was discussed and agreed upon with the patient as specifically documented in the above note. An opportunity to ask questions with explanation was provided. Patient voiced understanding on all information reviewed and discussed. <Timmy Santana - 05/04/18 12:02> <Mega Kidd - Last Filed: 05/03/18 11:39> (1) Closed fracture of proximal end of right tibia Qualifiers: Encounter type: initial encounter Fracture morphology: unspecified fracture morphology Qualified Code(s): S82.101A - Unspecified fracture of upper end of right tibia, initial encounter for closed fracture <Timmy Santana - Last Filed: 05/04/18 12:02> (1) Closed fracture of proximal end of right tibia Qualifiers: Encounter type: initial encounter Fracture morphology: unspecified fracture morphology Qualified Code(s): S82.101A - Unspecified fracture of upper end of right tibia, initial encounter for closed fracture <Mega Kidd - Last Filed: 05/03/18 11:39> (1) Closed fracture of proximal end of right tibia Qualifiers: Encounter type: initial encounter Fracture morphology: unspecified fracture morphology Qualified Code(s): S82.101A - Unspecified fracture of upper end of right tibia, initial encounter for closed fracture <Timmy Santana - Last Filed: 05/04/18 12:02> (1) Closed fracture of proximal end of right tibia Qualifiers: Encounter type: initial encounter Fracture morphology: unspecified fracture morphology Qualified Code(s): S82.101A - Unspecified fracture of upper end of right tibia, initial encounter for closed fracture
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
[2018-05-03] MEDS: Montelukast 10 MG Tablet PO SCH (18:00)
[2018-05-04] MEDS: Morphine Inj 4 MG/ML Vial IV.PUSH PRN ×5 (01:21→19:41)
[2018-05-04] MEDS ORDERED: Chlorhexidine Gluconate 2% 1 Pack (2 Cloths) TOPICAL ONE (02:02)
[2018-05-04 05:10] LABS: Hematocrit 31.6 % (35.0-46.0); Hemoglobin 10.6 gm/dL (11.6-15.3); Mean Corpuscular HGB Conc 33.4 % (32.0-36.0); Mean Corpuscular Hemoglobin 29.5 pg (27.0-34.0); Mean Corpuscular Volume 88.3 fL (80.0-100.0); Mean Platelet Volume 8.2 fL (7.0-11.0); Platelet Count 204 th/mm3 (150-450); Red Blood Count 3.58 mil/mm3 (4.00-5.30); Red Cell Distribution Width 13.1 % (11.6-17.2); White Blood Count 4.2 th/mm3 (4.0-11.0)
[2018-05-04 05:18] LABS: Alanine Aminotransferase 269 U/L (10-53); Albumin 2.9 g/dL (3.4-5.0); Anion Gap 6 meq/L (5-15); Aspartate Aminotransferase 170 U/L (15-37); Blood Urea Nitrogen 6 mg/dL (7-18); Carbon Dioxide 29.3 meq/L (21.0-32.0); Chloride 104 meq/L (98-107); Glomerular Filtration Rate Greater Than 89 mL/min (>89); Glucose,Random 97 mg/dL (74-106); Sodium 139 meq/L (136-145)
[2018-05-04 05:21] LABS: Alkaline Phosphatase 357 U/L (45-117); Alpha Fetoprotein Tumor Marker 1.1 ng/mL (0.5-8.0); Total Protein 5.9 g/dL (6.4-8.2)
[2018-05-04] MEDS: Levothyroxine 112 MCG Tablet PO SCH (06:15)
--- NOTE | 2018-05-04 06:33 | P.PNOP ---
Subjective Interval history: s/p right tibial plateau fx doing well. pain controlled. no complaints. Physical Exam Vital signs: Vital Signs 05/03/18 08:00 05/03/18 12:00 05/03/18 16:00 Temperature 98.3 F 98.3 F 97.6 F Pulse Rate 78 84 84 Respiratory Rate 18 16 18 Blood Pressure 108/55 L 109/53 L 110/63 Pulse Oximetry 98 97 98 05/03/18 20:34 05/04/18 00:00 Temperature 98.1 F 97.6 F Pulse Rate 85 71 Respiratory Rate 16 16 Blood Pressure 106/56 L Pulse Oximetry 99 97 Intake & Output 05/03/18 05/03/18 05/04/18 06:59 18:59 06:59 Intake Total Balance Weight 70.3 kg Intake: Oral Other: # Voids 3 Date of Last Bowel Movement 04/30/18 04/30/18 04/30/18 # Bowel Movements 0 Narrative: RLE: 1+ swelling of lower leg. compartments soft. nvi Results - Labs CBC & Chem 7: 05/04/18 04:46 05/04/18 04:46 Laboratory Results - last 24 hr 05/04/18 05/04/18 04:46 04:46 WBC 4.2 RBC 3.58 L Hgb 10.6 L Hct 31.6 L MCV 88.3 MCH 29.5 MCHC 33.4 RDW 13.1 Plt Count 204 MPV 8.2 Sodium 139 Potassium 4.0 Chloride 104 Carbon Dioxide 29.3 Anion Gap 6 BUN 6 L Creatinine 0.50 Estimated GFR Greater than 89 Random Glucose 97 Calcium 8.0 L Total Bilirubin 0.5 AST 170 H ALT 269 H Alkaline Phosphatase 357 H Total Protein 5.9 L Albumin 2.9 L Tumor Marker AFP 1.1 - Imaging Impressions Cholangiopancreatography MRI 05/03/18 07:07 CONCLUSION: 1. No acute finding is identified to explain the abdominal pain. Intra and extrahepatic bile ducts are within the range of normal since the patient is post cholecystectomy. No common duct stone is present. 2. No pancreas abnormality is identified. Assessment and Plan - Assessment and Plan 1) Right Tibial Plateau Fx -NWB -maintain knee brace -elevate -ice -surgery today with Dragan
[2018-05-04] MEDS ORDERED: Post-op Orders (for Pharmacy) OTHER STA (10:04)
--- NOTE | 2018-05-04 10:09 | P.OP ---
- Preoperative Diagnosis (1) Closed bicondylar fracture of right tibia Date of procedure: 05/04/18 Procedure: Open reduction internal fixation right bicondylar tibial plateau fracture Anesthesia: GETA Surgeon: Pipe Bullock MD Supervisor Audit Clerks: Orion Torres PA-C The surgical procedure was assisted by my physician stores assistant. My P.A. presence was necessary throughout this case for the manipulation and positioning of the surgical extremity. My P.A. was assisting me throughout the duration of this procedure. The skill set of a physician stores assistant was medically necessary to complete this procedure. During the surgical case the surgical appliance fitter was working at the back table and the physician stores assistant was directly assisting me. Operation and Findings: Implants used: Biomet Plan of activity: Nonweightbearing, no quad sets Riri was seen and evaluated preoperatively. Patient sustained an injury resulting a right bicondylar tibial plateau fracture. Informed consent was obtained preoperatively after detailed discussion of the risks and benefits of surgery. Risk of surgery including bleeding, infection, nonunion, painful hardware, stiffness, loss of motion, arthritis, need for knee replacement, as well as medical complications including blood clots, stroke, heart attack, and were discussed. I also discussed the possibility of using allograft bone graft . Preoperatively the operative site was marked. Patient was brought to the operating room and placed on the operating room table. Intravenous sedation and general endotracheal anesthesia were administered. IV antibiotics were given and a time out procedure was preformed. The operative leg was prepped with alcohol followed by Hibiclens and draped in the usual sterile fashion. Procedure began with a 4-inch curvilinear incision over the anterolateral knee. Subcutaneous tissue was treated with Bovie. Iliotibial band was split in line with fibers. A sub-meniscal arthrotomy was created and the lateral articular surface was visualized. There was significant comminution and depression of the articular surface. A window was made in the metaphyseal region and bone tamps used to elevate the articular surface. Articular surface reduced into excellent alignment. K-wires were used for provisional fixation. At this point cancellous bone graft was packed under the articular surface using a bone tamp. The cortical fragments were now reduced. The medial and lateral plateau fragments were now manipulated. Rotational alignment was achieved. Multiple K wires were used to hold the medial lateral plateau fragments together. Fluoroscopy revealed excellent alignment of fracture. A proximal tibial plate was selected. The plate was provisionally held with K-wires. 3.5 cortical screws were used compress plate to bone distally, and a periarticular clamp was used to compress the medial and lateral tibial plateau fracture fragments together. Multiple locking screws were now placed proximally. Additional screws were placed in the shaft. K-wires were removed. Final fluoroscopy showed excellent alignment of fracture with well- placed hardware. The incision was thoroughly irrigated. Arthrotomy and iliotibial band closed with #1 Vicryl,. Subcutaneous tissues closed with 3-0 Vicryl and skin was closed with cesar. Sterile dressings were applied. The patient was transferred to recovery in stable condition.
[2018-05-04] MEDS ORDERED: *Meperidine Inj 25 MG/ML Vial PERIprocedural Use ONLY ONE (10:26)
[2018-05-04] MEDS ORDERED: fentaNYL Citrate Inj 100 MCG/2 ML Ampul ONE ×2 (10:28→10:29)
[2018-05-04] MEDS ORDERED: *morphine SULFATE 4 MG/ML PERIprocedure ONLY ONE (10:43)
[2018-05-04] MEDS: Ketorolac Inj 30 MG/ML (IVP) Vial IV.PUSH SCH ×2 (10:52→23:00)
[2018-05-04] MEDS ORDERED: Vancomycin Inj 1 GM/200 ML PIGGYBACK IV.SIG SCH (11:00)
[2018-05-04] MEDS: Senna/Docusate Sodium 8.6/50 MG Tablet PO SCH ×2 (11:44→20:11)
[2018-05-04] MEDS: Pilocarpine HCl 5 MG Tablet PO SCH ×3 (11:44→18:00)
[2018-05-04] MEDS: Docusate Sodium Liq 100 MG/10 ML UDC PO SCH ×2 (11:44→20:12)
[2018-05-04] MEDS: Hydroxychloroquine 200 MG Tablet PO SCH ×2 (11:44→20:11)
--- NOTE | 2018-05-04 11:49 | P.PNFP ---
Subjective Interval history: Patient seen and examined today following orthopedic procedure. Patient reports continued pain and throbbing in her right leg. Notes she can still feel her feet, no coldness/numbness/tingling/extreme pain in her feet. Denies nausea, vomiting, fever, chills, don pain, chest pain, shortness of breath, lightheadedness, dizziness. Patient endorses constipation , reports she has not passed a bowel movement since the day before admission. She states she typically needs to take bulking laxatives at home due to her past gastric bypass. No other complaints today. <Mike Mendoza - 05/04/18 16:42> Results - Labs Result diagrams: 05/05/18 05:06 05/05/18 05:06 <Timmy Santana - 05/05/18 14:27> Abnormal lab results 05/04/18 05/05/18 05/05/18 Range/Units 04:46 05:06 05:06 Hgb 9.0 L (11.6-15.3) gm/dL Hct 26.6 L (35.0-46.0) % BUN 3 L (7-18) mg/dL Creatinine 0.40 L (0.50-1.00) mg/dL Calcium 7.6 L (8.5-10.1) mg/dL Iron 21 L (50-170) mcg/dL % Saturation 8.4 L (20-50) % AST 136 H (15-37) U/L ALT 187 H (10-53) U/L Alkaline Phosphatase 306 H (45-117) U/L Total Protein 5.6 L (6.4-8.2) g/dL Albumin 2.4 L (3.4-5.0) g/dL Short CBC 05/05/18 Range/Units 05:06 Hgb 9.0 L (11.6-15.3) gm/dL Hct 26.6 L (35.0-46.0) % BMP 05/05/18 05/05/18 05:06 05:06 Sodium 140 Cancelled Potassium 3.5 Cancelled Chloride 105 Cancelled Carbon Dioxide 29.3 Cancelled BUN 3 L Cancelled Creatinine 0.40 L Cancelled Calcium 7.6 L Cancelled Liver Function 05/05/18 05/05/18 Range/Units 05:06 05:06 Total Bilirubin 0.6 Cancelled (0.2-1.0) mg/dL AST 136 H Cancelled (15-37) U/L ALT 187 H Cancelled (10-53) U/L Alkaline Phosphatase 306 H Cancelled (45-117) U/L Albumin 2.4 L Cancelled (3.4-5.0) g/dL <Timmy Santana - 05/05/18 14:27> Abnormal lab results 05/04/18 05/04/18 Range/Units 04:46 04:46 RBC 3.58 L (4.00-5.30) mil/mm3 Hgb 10.6 L (11.6-15.3) gm/dL Hct 31.6 L (35.0-46.0) % BUN 6 L (7-18) mg/dL Calcium 8.0 L (8.5-10.1) mg/dL AST 170 H (15-37) U/L ALT 269 H (10-53) U/L Alkaline Phosphatase 357 H (45-117) U/L Total Protein 5.9 L (6.4-8.2) g/dL Albumin 2.9 L (3.4-5.0) g/dL Short CBC 05/04/18 Range/Units 04:46 WBC 4.2 (4.0-11.0) th/mm3 Hgb 10.6 L (11.6-15.3) gm/dL Hct 31.6 L (35.0-46.0) % Plt Count 204 (150-450) th/mm3 BMP 05/04/18 04:46 Sodium 139 Potassium 4.0 Chloride 104 Carbon Dioxide 29.3 BUN 6 L Creatinine 0.50 Calcium 8.0 L Liver Function 05/04/18 Range/Units 04:46 Total Bilirubin 0.5 (0.2-1.0) mg/dL AST 170 H (15-37) U/L ALT 269 H (10-53) U/L Alkaline Phosphatase 357 H (45-117) U/L Albumin 2.9 L (3.4-5.0) g/dL <Mike Mendoza - 05/04/18 11:49> - Imaging Impressions Cholangiopancreatography MRI 05/03/18 07:07 CONCLUSION: 1. No acute finding is identified to explain the abdominal pain. Intra and extrahepatic bile ducts are within the range of normal since the patient is post cholecystectomy. No common duct stone is present. 2. No pancreas abnormality is identified. <Mike Mendoza - 05/04/18 11:49> Physical Exam Vital signs: Vital Signs 05/04/18 16:00 05/04/18 20:00 05/05/18 00:00 Temperature 97.8 F 98.6 F 98.3 F Pulse Rate 93 H 95 H 87 Respiratory Rate 17 18 18 Blood Pressure 120/60 110/52 L 107/64 Pulse Oximetry 98 98 99 05/05/18 04:00 05/05/18 08:00 05/05/18 08:55 Temperature 97.8 F 97.7 F Pulse Rate 83 76 Respiratory Rate 18 18 10 L Blood Pressure 99/50 L 99/56 L Pulse Oximetry 97 96 05/05/18 11:51 05/05/18 12:13 Temperature 98.2 F Pulse Rate 83 Respiratory Rate 17 9 L Blood Pressure 109/51 L Pulse Oximetry 98 Intake & Output 05/04/18 05/05/18 05/05/18 18:59 06:59 18:59 Intake Total 1500 / 1500 1350 / 1350 50 / 50 Output Total 50 / 50 Balance 1450 / 1450 1350 / 1350 50 / 50 Weight 75.6 kg Intake: IV 950 / 950 1350 / 1350 50 / 50 LR 1000 mL Inj 1,000 ML @ 80 1000 / 1000 mls/hr IV.CONT .[id number] [facility] Rx# :[id number] LR 1000 mL Inj 1,000 ML @ 30 900 / 900 mls/hr IV.SIG .Q24H [facility] Rx#: [id number] Vancomycin Inj 1,000 MG In NS 250 / 250 Inj 250 ML @ 250 mls/hr IV.SIG Q12H [facility] Rx#:[id number] Ancef 2 GM Premix Inj 2 gm In 50 / 50 100 / 100 50 / 50 50 ml @ 100 mls/hr IV.SIG Q8H [facility] Rx#:[id number] Oral 550 / 550 Output: Estimated Blood Loss 50 / 50 Other: # Voids 2 Date of Last Bowel Movement 04/30/18 04/30/18 04/30/18 <Timmy Santana - 05/05/18 14:27> Vital Signs 05/03/18 12:00 05/03/18 16:00 05/03/18 20:34 Temperature 98.3 F 97.6 F 98.1 F Pulse Rate 84 84 85 Respiratory Rate 16 18 16 Blood Pressure 109/53 L 110/63 106/56 L Pulse Oximetry 97 98 99 05/04/18 00:00 05/04/18 03:28 05/04/18 08:00 Temperature 97.6 F 97.4 F L 97.2 F L Pulse Rate 71 63 73 Respiratory Rate 16 17 16 Blood Pressure 97/54 L 106/53 L Pulse Oximetry 97 97 100 05/04/18 10:22 Temperature 97.5 F L Pulse Rate 85 Respiratory Rate 16 Blood Pressure 132/62 Pulse Oximetry 99 Intake & Output 05/03/18 05/04/18 05/04/18 18:59 06:59 18:59 Intake Total 300 / 300 900 / 900 Output Total 820 / 820 50 / 50 Balance -520 / -520 850 / 850 Weight 75.4 kg Intake: IV 900 / 900 LR 1000 mL Inj 1,000 ML @ 30 900 / 900 mls/hr IV.SIG .Q24H [facility] Rx#: [id number] Oral 300 / 300 Output: Urine 820 / 820 Stool 0 / 0 Estimated Blood Loss 50 / 50 Other: Date of Last Bowel Movement 04/30/18 04/30/18 04/30/18 <Mike Mendoza - 05/04/18 11:49> Narrative: General: Well-developed, alert, and in no acute distress. Appears stated age HEENT: Atraumatic, moist mucous membranes Neck: Supple, trachea midline Cardiac: Regular rate and rhythm without murmur Pulmonary: Non-labored breathing. Lungs clear to auscultation bilaterally with good air movement Abdomen: Normal bowel sounds, soft and non-tender without rebound or guarding Extremities: Mild right sided pedal edema, 2+ pedal pulses, capillary refill less than 2 seconds. Neurovascularly intact distal to the injury. Brace is in place over the right leg. <Mike Mendoza - 05/04/18 16:42> Assessment and Plan - Assessment (1) Closed fracture of proximal end of right tibia Code(s): S82.101A - Unspecified fracture of upper end of right tibia, initial encounter for closed fracture Status: Acute (2) Elevated liver enzymes Code(s): R74.8 - Abnormal levels of other serum enzymes Status: Acute (3) Hypothyroid Code(s): E03.9 - Hypothyroidism, unspecified Status: Acute (4) Sjogrens syndrome Code(s): M35.00 - Sicca syndrome, unspecified Status: Acute (5) Lupus Code(s): L93.0 - Discoid lupus erythematosus Status: Acute <Timmy Santana - 05/05/18 14:27> (1) Closed fracture of proximal end of right tibia Code(s): S82.101A - Unspecified fracture of upper end of right tibia, initial encounter for closed fracture Status: Acute Plan: Closed fracture of proximal end of her right tibia and fibula. -Orthopedic surgery consulted, appreciate recommendations -Surgical intervention 05/04/18 (2) Elevated liver enzymes Code(s): R74.8 - Abnormal levels of other serum enzymes Status: Acute Plan: Elevated liver enzymes. 05/03/18 AST 272 ALT 353 alk phos 352, downtrending. Hepatitis panel negative. She does report history of liver damage secondary to a "nicked hepatic duct" during a cholecystectomy. Ultrasound shows mild hepatomegaly. Lowest MAP was 61, making shock liver unlikely -Consult GI, appreciate recommendations -No acute disease identified on MRCP, intra-and extrahepatic bile ducts are within the normal range considering her prior cholecystectomy. -Autoimmune workup pending (3) Hypothyroid Code(s): E03.9 - Hypothyroidism, unspecified Status: Acute Plan: History of hypothyroidism -Continue levothyroxine 112 mcg daily -Normal TSH (4) Sjogrens syndrome Code(s): M35.00 - Sicca syndrome, unspecified Status: Acute Plan: History of Sjogren's. -Monitor and treat symptoms as needed (5) Lupus Code(s): L93.0 - Discoid lupus erythematosus Status: Acute Plan: History of lupus. -Continue home medications, CellCept, Plaquenil -Reports no current symptoms <Mike Mendoza - 05/04/18 16:30> - Assessment and Plan Fluids: Adequate p.o. intake Electrolytes: monitor and replete as needed Nutrition: Regular diet (intermittent n.p.o. after midnight, no current date scheduled for surgery) GI prophylaxis: not indicated VTE prophylaxis: SCD on left side <Mike Mendoza - 05/04/18 16:42> - Attending Attestation See the residents documentation for details. I saw and evaluated the patient regarding the gould portions of this evaluation and agree with the residents findings and plans as written. Parts of this note were created using [employer] voice recognition software program. While efforts were made to correct any mistakes made by this software, some mistakes, errors, and omissions may remain in the final note that were not caught when the note was originally created. Plan of care was discussed and agreed upon with the patient as specifically documented in the above note. An opportunity to ask questions with explanation was provided. Patient voiced understanding on all information reviewed and discussed. <Timmy Santana - 05/05/18 14:27> <Timmy Santana - Last Filed: 05/05/18 14:27> (1) Closed fracture of proximal end of right tibia Qualifiers: Encounter type: initial encounter Fracture morphology: unspecified fracture morphology Qualified Code(s): S82.101A - Unspecified fracture of upper end of right tibia, initial encounter for closed fracture <Timmy Santana - Last Filed: 05/05/18 14:27> (1) Closed fracture of proximal end of right tibia Qualifiers: Encounter type: initial encounter Fracture morphology: unspecified fracture morphology Qualified Code(s): S82.101A - Unspecified fracture of upper end of right tibia, initial encounter for closed fracture
[2018-05-04] MEDS: Calcium/Vitamin D 250/125 MG Tablet PO SCH ×2 (12:58→18:00)
[2018-05-04 13:51] LABS: Smooth Muscle Total Auto Abs Negative (Negative)
--- NOTE | 2018-05-04 14:02 | XR ---
EXAM DATE: 05/04/2018 1:37 PM EST AGE/SEX: 43 years / Female INDICATIONS: ORIF right tibial plateau fracture. CLINICAL DATA: This is the patient's subsequent encounter. Patient reports that signs and symptoms h ave been present for 4 - 6 days and indicates a pain score of Nonresponsive. MEDICAL/SURGICAL HISTORY: Non-responsive. Non-responsive. [place] [facility] [place]. . FINDINGS: 3 spot images obtained in the operating room during a procedure documents a proximal lateral tibial s sawyer plate with multiple interlocking screws. There is improved anatomic alignment of the tibia fractu re. The proximal fibular fracture is unchanged. CONCLUSION: Images document changes following proximal tibia ORIF. Electronically signed by: Luciano Ribeiro MD 05/04/2018 2:01 PM EST
--- NOTE | 2018-05-04 16:56 | P.PNGI ---
Subjective Interval history: Pt is resting in bed Denies nausea, vomiting Denies abdominal pain Physical Exam Vital signs: Vital Signs 05/03/18 20:34 05/04/18 00:00 05/04/18 03:28 Temperature 98.1 F 97.6 F 97.4 F L Pulse Rate 85 71 63 Respiratory Rate 16 16 17 Blood Pressure 106/56 L 97/54 L Pulse Oximetry 99 97 97 05/04/18 08:00 05/04/18 10:22 05/04/18 10:30 Temperature 97.2 F L 97.5 F L Pulse Rate 73 85 77 Respiratory Rate 16 16 17 Blood Pressure 106/53 L 132/62 120/67 Pulse Oximetry 100 99 100 05/04/18 10:45 05/04/18 11:00 05/04/18 11:05 Temperature Pulse Rate 78 76 Respiratory Rate 17 17 17 Blood Pressure 117/65 110/62 Pulse Oximetry 98 98 05/04/18 11:15 05/04/18 11:21 05/04/18 12:00 Temperature 97.5 F L 97.1 F L Pulse Rate 74 79 Respiratory Rate 17 17 18 Blood Pressure 117/66 99/79 L Pulse Oximetry 98 98 Intake & Output 05/03/18 05/04/18 05/04/18 18:59 06:59 18:59 Intake Total 300 / 300 900 / 900 Output Total 820 / 820 50 / 50 Balance -520 / -520 850 / 850 Weight 75.4 kg Intake: IV 900 / 900 LR 1000 mL Inj 1,000 ML @ 30 900 / 900 mls/hr IV.SIG .Q24H [facility] Rx#: [id number] Oral 300 / 300 Output: Urine 820 / 820 Stool 0 / 0 Estimated Blood Loss 50 / 50 Other: Date of Last Bowel Movement 04/30/18 04/30/18 04/30/18 - Constitutional no acute distress - Routine HEENT Exam Head: Present: normocephalic, atraumatic - Routine Respiratory Exam Absent: accessory muscle use - Routine Cardiovascular Exam Present: RRR - Routine Abdominal Exam Present: soft, normoactive bowel sounds. Absent: tenderness, distended - Routine Skin Exam Present: dry, warm - Routine Neurological Exam Present: alert, oriented X3 Results - Labs CBC & Chem 7: 05/04/18 04:46 05/04/18 04:46 Laboratory Results - last 24 hr 05/02/18 05/04/18 05/04/18 16:21 04:46 04:46 WBC 4.2 RBC 3.58 L Hgb 10.6 L Hct 31.6 L MCV 88.3 MCH 29.5 MCHC 33.4 RDW 13.1 Plt Count 204 MPV 8.2 Sodium 139 Potassium 4.0 Chloride 104 Carbon Dioxide 29.3 Anion Gap 6 BUN 6 L Creatinine 0.50 Estimated GFR Greater than 89 Random Glucose 97 Calcium 8.0 L Total Bilirubin 0.5 AST 170 H ALT 269 H Alkaline Phosphatase 357 H Total Protein 5.9 L Albumin 2.9 L Tumor Marker AFP 1.1 Anti-Smooth Muscle Ab Negative - Imaging Impressions Knee X-Ray 05/04/18 00:00 CONCLUSION: Images document changes following proximal tibia ORIF. Assessment and Plan (1) Elevated liver enzymes Status: Acute Code(s): R74.8 - Abnormal levels of other serum enzymes - Plan Assessment: Transaminitis: Pt has history of fluctuating LFTs since previous gastric bypass and cholecystectomy at which time she reports her right hepatic duct was severed during surgery. Pt had labs done by her PCP about 3-4 months ago and she states her LFTs were in the 300s, she was sent to Dr. Rainey for follow up. He recommended follow up labs in 6 months. Labs on admission were (04/30) AST-73 ALT-89 Alk phos-173 T bili-0.3 Significantly elevated overnight (05/01) AST-603 ALT-364 Alk phos-280 T bili- 0.5 No hypotensive episodes. No new meds Work up so far: Liver ultrasound --> Mild hepatomegaly. Poor visualization of the pancreas. Possible biliary stricture. MRCP revealed the following- No acute finding is identified to explain the abdominal pain. Intra and extrahepatic bile ducts are within the range of normal since the patient is post cholecystectomy. No common duct stone is present. No pancreas abnormality is identified. Hepatitis panel negative. ASMA negative. RYLAN and AMA pending. Ceruloplasmin pending. AFP- 1.1 Plan Pt is stable for discharge from a GI standpoint and labs can be followed up on outpatient Our service will continue to follow during admission alk phos iso enzymes added Liver work up pending This patient has been seen by myself and Dr. Grier and this note is written on his behalf
[2018-05-04 17:53] LABS: % Iron Saturation 8.4 % (20-50)
[2018-05-04] MEDS: ceFAZolin 2 GM Premix Inj 2 GM/50 ML PIGGYBACK IV.SIG SCH (18:07)
[2018-05-04] MEDS: Montelukast 10 MG Tablet PO SCH (19:42)
[2018-05-04] MEDS: Vancomycin Inj 1,000 MG in Sodium Chlor 0.9% Inj 250 ML IV.SIG SCH (20:10)
[2018-05-05] MEDS: ceFAZolin 2 GM Premix Inj 2 GM/50 ML PIGGYBACK IV.SIG SCH ×3 (00:34→17:25)
[2018-05-05] MEDS: Morphine Inj 4 MG/ML Vial IV.PUSH PRN ×5 (03:43→19:24)
[2018-05-05 06:36] LABS: Hematocrit 26.6 % (35.0-46.0)
--- NOTE | 2018-05-05 06:36 | P.PNOP ---
Subjective Interval history: POD 1 s/p ORIF right tibial plateau doing well. states pain but controlled. Physical Exam Vital signs: Vital Signs 05/04/18 08:00 05/04/18 10:22 05/04/18 10:30 Temperature 97.2 F L 97.5 F L Pulse Rate 73 85 77 Respiratory Rate 16 16 17 Blood Pressure 106/53 L 132/62 120/67 Pulse Oximetry 100 99 100 05/04/18 10:45 05/04/18 11:00 05/04/18 11:05 Temperature Pulse Rate 78 76 Respiratory Rate 17 17 17 Blood Pressure 117/65 110/62 Pulse Oximetry 98 98 05/04/18 11:15 05/04/18 11:21 05/04/18 12:00 Temperature 97.5 F L 97.1 F L Pulse Rate 74 79 Respiratory Rate 17 17 18 Blood Pressure 117/66 99/79 L Pulse Oximetry 98 98 05/04/18 16:00 05/04/18 20:00 05/05/18 00:00 Temperature 97.8 F 98.6 F 98.3 F Pulse Rate 93 H 95 H 87 Respiratory Rate 17 18 18 Blood Pressure 120/60 110/52 L 107/64 Pulse Oximetry 98 98 99 05/05/18 04:00 Temperature 97.8 F Pulse Rate 83 Respiratory Rate 18 Blood Pressure 99/50 L Pulse Oximetry 97 Intake & Output 05/04/18 05/04/18 05/05/18 06:59 18:59 06:59 Intake Total 300 / 300 1500 / 1500 1350 / 1350 Output Total 820 / 820 50 / 50 Balance -520 / -520 1450 / 1450 1350 / 1350 Weight 75.4 kg 75.6 kg Intake: IV 950 / 950 1350 / 1350 LR 1000 mL Inj 1,000 ML @ 80 1000 / 1000 mls/hr IV.CONT .[id number] [facility] Rx# :[id number] LR 1000 mL Inj 1,000 ML @ 30 900 / 900 mls/hr IV.SIG .Q24H [facility] Rx#: [id number] Vancomycin Inj 1,000 MG In NS 250 / 250 Inj 250 ML @ 250 mls/hr IV.SIG Q12H [facility] Rx#:[id number] Ancef 2 GM Premix Inj 2 gm In 50 / 50 100 / 100 50 ml @ 100 mls/hr IV.SIG Q8H [facility] Rx#:[id number] Oral 300 / 300 550 / 550 Output: Urine 820 / 820 Stool 0 / 0 Estimated Blood Loss 50 / 50 Other: # Voids 2 Date of Last Bowel Movement 04/30/18 04/30/18 04/30/18 Narrative: RLE: dressing clean and dry.intact. NVI. strong dorsiflexin. compartments soft Results - Labs CBC & Chem 7: 05/04/18 04:46 05/04/18 04:46 Laboratory Results - last 24 hr 05/02/18 05/04/18 16:21 04:46 Iron 21 L TIBC 251 % Saturation 8.4 L Ferritin 101 Rheumatoid Factor Less than 14 Anti-Smooth Muscle Ab Negative - Imaging Impressions Knee X-Ray 05/04/18 00:00 CONCLUSION: Images document changes following proximal tibia ORIF. Assessment and Plan - Assessment and Plan 1) Right Tibial Plateau Fx s/p ORIF - POD 1 -NWB -maintain knee brace; remove with PT -PROM 0-90deg -no quad sets or leg lifts -elevate -ice -ortho surgeries complete -work with therpay today on ambulating and plan for home with [facility] hopefully tomorrow if doing well -DVT prophylaxis with lovenox. will DC with xarelto -f/u with Romain or MAURICE in 2 weeks - patient received tramadol rx on 04/01. we will be assuming care of pain meds at this point moving forward. [employer] Prescription Drug Monitoring Database has been queried and verified prior to prescribing the controlled substance. Acute pain exception. This patient has normal, predicted, physiological, and time limited response to an adverse mechanical stimulus associated with surgery, trauma, or acute illness as described in my notes. There is a lack of alternative treatment options other than to include the prescribed narcotic treatment for this condition.
--- NOTE | 2018-05-05 06:37 | P.DCO ---
- Physical Therapy Physical Therapy: Gait training, Safety evaluation Knee: Knee fracture, Protocol: Right, Non weight bearing Canvas Knee Splint: Remove only with PT Right Lower Extremity Weight Bearing: Non-weight bearing, No strengthening, No quad sets Right Lower Extremity Range of Motion: Passive ROM (0-90deg) - Nursing Dressing changes: Daily dressing change, Xeroform, Coverderm/Primapore - Certification Need for Home Health services: I have seen patient Riri Storey on 05/05/18. My clinical findings support the need for the requested home health care services because: Need for Home Health Services: Limited mobility due to disease progression Homebound Certification: I certify that my clinical findings support that this patient is homebound because: Homebound Certification: Post-op weakness
[2018-05-05] MEDS: Levothyroxine 112 MCG Tablet PO SCH (06:38)
[2018-05-05 07:01] LABS: Anion Gap 6 meq/L (5-15); Blood Urea Nitrogen 3 mg/dL (7-18); Calcium 7.6 mg/dL (8.5-10.1); Carbon Dioxide 29.3 meq/L (21.0-32.0); Chloride 105 meq/L (98-107); Glomerular Filtration Rate Greater Than 89 mL/min (>89); Glucose,Random 105 mg/dL (74-106); Potassium 3.5 meq/L (3.5-5.1); Sodium 140 meq/L (136-145)
[2018-05-05 07:19] LABS: Alanine Aminotransferase 187 U/L (10-53); Albumin 2.4 g/dL (3.4-5.0); Aspartate Aminotransferase 136 U/L (15-37)
[2018-05-05 07:21] LABS: Alkaline Phosphatase 306 U/L (45-117); Total Protein 5.6 g/dL (6.4-8.2)
[2018-05-05] MEDS: Ketorolac Inj 30 MG/ML (IVP) Vial IV.PUSH SCH ×3 (08:56→21:23)
[2018-05-05] MEDS: Enoxaparin Inj 40 MG/0.4 ML Syringe SQ SCH (09:02)
[2018-05-05] MEDS: Docusate Sodium Liq 100 MG/10 ML UDC PO SCH ×2 (09:02→20:21)
[2018-05-05] MEDS: Hydroxychloroquine 200 MG Tablet PO SCH ×2 (09:03→20:16)
[2018-05-05] MEDS: Calcium/Vitamin D 250/125 MG Tablet PO SCH ×3 (09:04→17:24)
[2018-05-05] MEDS: Senna/Docusate Sodium 8.6/50 MG Tablet PO SCH ×2 (09:04→20:15)
[2018-05-05] MEDS: Pilocarpine HCl 5 MG Tablet PO SCH ×3 (09:04→17:23)
[2018-05-05] MEDS: Vancomycin Inj 1,000 MG in Sodium Chlor 0.9% Inj 250 ML IV.SIG SCH (10:32)
--- NOTE | 2018-05-05 11:18 | P.PNFP ---
Subjective Interval history: Patient is feeling okay today. her pain is well-controlled. No nausea or vomiting, but she has not yet had a bowel movement. She is POD1 ORIF of R tibial plateau fracture. <Yoli Suarez U - 05/05/18 12:14> Results - Labs Result diagrams: 05/05/18 05:06 05/05/18 05:06 <Timmy Santana - 05/05/18 14:45> Abnormal lab results 05/04/18 05/05/18 05/05/18 Range/Units 04:46 05:06 05:06 Hgb 9.0 L (11.6-15.3) gm/dL Hct 26.6 L (35.0-46.0) % BUN 3 L (7-18) mg/dL Creatinine 0.40 L (0.50-1.00) mg/dL Calcium 7.6 L (8.5-10.1) mg/dL Iron 21 L (50-170) mcg/dL % Saturation 8.4 L (20-50) % AST 136 H (15-37) U/L ALT 187 H (10-53) U/L Alkaline Phosphatase 306 H (45-117) U/L Total Protein 5.6 L (6.4-8.2) g/dL Albumin 2.4 L (3.4-5.0) g/dL Short CBC 05/05/18 Range/Units 05:06 Hgb 9.0 L (11.6-15.3) gm/dL Hct 26.6 L (35.0-46.0) % BMP 05/05/18 05/05/18 05:06 05:06 Sodium 140 Cancelled Potassium 3.5 Cancelled Chloride 105 Cancelled Carbon Dioxide 29.3 Cancelled BUN 3 L Cancelled Creatinine 0.40 L Cancelled Calcium 7.6 L Cancelled Liver Function 05/05/18 05/05/18 Range/Units 05:06 05:06 Total Bilirubin 0.6 Cancelled (0.2-1.0) mg/dL AST 136 H Cancelled (15-37) U/L ALT 187 H Cancelled (10-53) U/L Alkaline Phosphatase 306 H Cancelled (45-117) U/L Albumin 2.4 L Cancelled (3.4-5.0) g/dL <Timmy Santana - 05/05/18 14:45> Abnormal lab results 05/04/18 05/05/18 05/05/18 Range/Units 04:46 05:06 05:06 Hgb 9.0 L (11.6-15.3) gm/dL Hct 26.6 L (35.0-46.0) % BUN 3 L (7-18) mg/dL Creatinine 0.40 L (0.50-1.00) mg/dL Calcium 7.6 L (8.5-10.1) mg/dL Iron 21 L (50-170) mcg/dL % Saturation 8.4 L (20-50) % AST 136 H (15-37) U/L ALT 187 H (10-53) U/L Alkaline Phosphatase 306 H (45-117) U/L Total Protein 5.6 L (6.4-8.2) g/dL Albumin 2.4 L (3.4-5.0) g/dL Short CBC 05/05/18 Range/Units 05:06 Hgb 9.0 L (11.6-15.3) gm/dL Hct 26.6 L (35.0-46.0) % BMP 05/05/18 05/05/18 05:06 05:06 Sodium 140 Cancelled Potassium 3.5 Cancelled Chloride 105 Cancelled Carbon Dioxide 29.3 Cancelled BUN 3 L Cancelled Creatinine 0.40 L Cancelled Calcium 7.6 L Cancelled Liver Function 05/05/18 05/05/18 Range/Units 05:06 05:06 Total Bilirubin 0.6 Cancelled (0.2-1.0) mg/dL AST 136 H Cancelled (15-37) U/L ALT 187 H Cancelled (10-53) U/L Alkaline Phosphatase 306 H Cancelled (45-117) U/L Albumin 2.4 L Cancelled (3.4-5.0) g/dL <Yoli Suarez U - 05/05/18 11:18> - Imaging Impressions Knee X-Ray 05/04/18 00:00 CONCLUSION: Images document changes following proximal tibia ORIF. <Yoli Suarez U - 05/05/18 11:18> Physical Exam Vital signs: Vital Signs 05/04/18 16:00 05/04/18 20:00 05/05/18 00:00 Temperature 97.8 F 98.6 F 98.3 F Pulse Rate 93 H 95 H 87 Respiratory Rate 17 18 18 Blood Pressure 120/60 110/52 L 107/64 Pulse Oximetry 98 98 99 05/05/18 04:00 05/05/18 08:00 05/05/18 08:55 Temperature 97.8 F 97.7 F Pulse Rate 83 76 Respiratory Rate 18 18 10 L Blood Pressure 99/50 L 99/56 L Pulse Oximetry 97 96 05/05/18 11:51 05/05/18 12:13 Temperature 98.2 F Pulse Rate 83 Respiratory Rate 17 9 L Blood Pressure 109/51 L Pulse Oximetry 98 Intake & Output 05/04/18 05/05/18 05/05/18 18:59 06:59 18:59 Intake Total 1500 / 1500 1350 / 1350 50 / 50 Output Total 50 / 50 Balance 1450 / 1450 1350 / 1350 50 / 50 Weight 75.6 kg Intake: IV 950 / 950 1350 / 1350 50 / 50 LR 1000 mL Inj 1,000 ML @ 80 1000 / 1000 mls/hr IV.CONT .[id number] [facility] Rx# :[id number] LR 1000 mL Inj 1,000 ML @ 30 900 / 900 mls/hr IV.SIG .Q24H [facility] Rx#: [id number] Vancomycin Inj 1,000 MG In NS 250 / 250 Inj 250 ML @ 250 mls/hr IV.SIG Q12H [facility] Rx#:[id number] Ancef 2 GM Premix Inj 2 gm In 50 / 50 100 / 100 50 / 50 50 ml @ 100 mls/hr IV.SIG Q8H [facility] Rx#:[id number] Oral 550 / 550 Output: Estimated Blood Loss 50 / 50 Other: # Voids 2 Date of Last Bowel Movement 04/30/18 04/30/18 04/30/18 <Timmy Santana - 05/05/18 14:45> Vital Signs 05/04/18 11:21 05/04/18 12:00 05/04/18 16:00 Temperature 97.1 F L 97.8 F Pulse Rate 79 93 H Respiratory Rate 17 18 17 Blood Pressure 99/79 L 120/60 Pulse Oximetry 98 98 05/04/18 20:00 05/05/18 00:00 05/05/18 04:00 Temperature 98.6 F 98.3 F 97.8 F Pulse Rate 95 H 87 83 Respiratory Rate 18 18 18 Blood Pressure 110/52 L 107/64 99/50 L Pulse Oximetry 98 99 97 05/05/18 08:00 05/05/18 08:55 Temperature 97.7 F Pulse Rate 76 Respiratory Rate 18 10 L Blood Pressure 99/56 L Pulse Oximetry 96 Intake & Output 05/04/18 05/05/18 05/05/18 18:59 06:59 18:59 Intake Total 1500 / 1500 1350 / 1350 50 / 50 Output Total 50 / 50 Balance 1450 / 1450 1350 / 1350 50 / 50 Weight 75.6 kg Intake: IV 950 / 950 1350 / 1350 50 / 50 LR 1000 mL Inj 1,000 ML @ 80 1000 / 1000 mls/hr IV.CONT .[id number] [facility] Rx# :[id number] LR 1000 mL Inj 1,000 ML @ 30 900 / 900 mls/hr IV.SIG .Q24H [facility] Rx#: [id number] Vancomycin Inj 1,000 MG In NS 250 / 250 Inj 250 ML @ 250 mls/hr IV.SIG Q12H [facility] Rx#:[id number] Ancef 2 GM Premix Inj 2 gm In 50 / 50 100 / 100 50 / 50 50 ml @ 100 mls/hr IV.SIG Q8H [facility] Rx#:[id number] Oral 550 / 550 Output: Estimated Blood Loss 50 / 50 Other: # Voids 2 Date of Last Bowel Movement 04/30/18 04/30/18 <Yoli Suarez - 05/05/18 11:18> Assessment and Plan - Assessment (1) Closed fracture of proximal end of right tibia Code(s): S82.101A - Unspecified fracture of upper end of right tibia, initial encounter for closed fracture Status: Acute (2) Elevated liver enzymes Code(s): R74.8 - Abnormal levels of other serum enzymes Status: Acute (3) Hypothyroid Code(s): E03.9 - Hypothyroidism, unspecified Status: Acute (4) Sjogrens syndrome Code(s): M35.00 - Sicca syndrome, unspecified Status: Acute (5) Lupus Code(s): L93.0 - Discoid lupus erythematosus Status: Acute <Timmy Santana - 05/05/18 14:45> (1) Closed fracture of proximal end of right tibia Code(s): S82.101A - Unspecified fracture of upper end of right tibia, initial encounter for closed fracture Status: Acute Plan: POD1 ORIF of R tibial plateau fracture -Doing well -Pain control per orthopedic surgery -Continue PT today -Hopefully discharge tomorrow 05/06/2018 with Home health PT -Continue DVT prophylaxis with Lovenox -Discharge home with Xarelto -Keep foot iced and elevated -No weight-bearing -Follow up with Dr. Archibald's office in 2 weeks (2) Elevated liver enzymes Code(s): R74.8 - Abnormal levels of other serum enzymes Status: Acute Plan: Elevated liver enzymes. 05/05/18 AST 136 ALT 187 alk phos 306, downtrending. Hepatitis panel negative. She does report history of liver damage secondary to a "nicked hepatic duct" during a cholecystectomy. Ultrasound shows mild hepatomegaly. Lowest MAP was 61, making shock liver unlikely -GI following * Stable for discharge per GI standpoint * Liver workup pending * Autoimmune workup pending (3) Hypothyroid Code(s): E03.9 - Hypothyroidism, unspecified Status: Acute Plan: History of hypothyroidism -Continue levothyroxine 112 mcg daily -Normal TSH (4) Sjogrens syndrome Code(s): M35.00 - Sicca syndrome, unspecified Status: Acute Plan: History of Sjogren's. -Monitor and treat symptoms as needed (5) Lupus Code(s): L93.0 - Discoid lupus erythematosus Status: Acute Plan: History of lupus. -Continue home medications, CellCept, Plaquenil -Reports no current symptoms <Yoli Suarez U - 05/05/18 12:16> - Assessment and Plan 43 y/o F presented with a right tibial plateau fracture found to have elevated liver enzymes. She is POD1 ORIF right tibial plateau. GI was consulted due to elevated liver enzymes that are now downtrending. Autoimmune labs are pending. Possible discharge with PT tomorrow 05/06/2018. Fluids: Adequate p.o. intake Electrolytes: monitor and replete as needed Nutrition: Regular diet GI prophylaxis: not indicated VTE prophylaxis: Lovenox <Yoli Suarez U - 05/05/18 12:24> - Attending Attestation See the residents documentation for details. I saw and evaluated the patient regarding the gould portions of this evaluation and agree with the residents findings and plans as written. Parts of this note were created using [employer] voice recognition software program. While efforts were made to correct any mistakes made by this software, some mistakes, errors, and omissions may remain in the final note that were not caught when the note was originally created. Plan of care was discussed and agreed upon with the patient as specifically documented in the above note. An opportunity to ask questions with explanation was provided. Patient voiced understanding on all information reviewed and discussed. <Timmy Santana - 05/05/18 14:45> <DanielaYoli U - Last Filed: 05/05/18 12:16> (1) Closed fracture of proximal end of right tibia Qualifiers: Encounter type: initial encounter Fracture morphology: unspecified fracture morphology Qualified Code(s): S82.101A - Unspecified fracture of upper end of right tibia, initial encounter for closed fracture <Timmy Santana - Last Filed: 05/05/18 14:45> (1) Closed fracture of proximal end of right tibia Qualifiers: Encounter type: initial encounter Fracture morphology: unspecified fracture morphology Qualified Code(s): S82.101A - Unspecified fracture of upper end of right tibia, initial encounter for closed fracture <Radha Suarezfrancisco Crawford - Last Filed: 05/05/18 12:16> (1) Closed fracture of proximal end of right tibia Qualifiers: Encounter type: initial encounter Fracture morphology: unspecified fracture morphology Qualified Code(s): S82.101A - Unspecified fracture of upper end of right tibia, initial encounter for closed fracture <Timmy Santana - Last Filed: 05/05/18 14:45> (1) Closed fracture of proximal end of right tibia Qualifiers: Encounter type: initial encounter Fracture morphology: unspecified fracture morphology Qualified Code(s): S82.101A - Unspecified fracture of upper end of right tibia, initial encounter for closed fracture
--- NOTE | 2018-05-05 14:37 | P.PNGI ---
Subjective Interval history: Pt resting in bedside chair. Pain to leg is better controlled today. LFTs trending down. Denies nausea, vomiting, abdominal pain. Has not had BM yet, is about to take a laxative. Physical Exam Vital signs: Vital Signs 05/04/18 16:00 05/04/18 20:00 05/05/18 00:00 Temperature 97.8 F 98.6 F 98.3 F Pulse Rate 93 H 95 H 87 Respiratory Rate 17 18 18 Blood Pressure 120/60 110/52 L 107/64 Pulse Oximetry 98 98 99 05/05/18 04:00 05/05/18 08:00 05/05/18 08:55 Temperature 97.8 F 97.7 F Pulse Rate 83 76 Respiratory Rate 18 18 10 L Blood Pressure 99/50 L 99/56 L Pulse Oximetry 97 96 05/05/18 11:51 05/05/18 12:13 Temperature 98.2 F Pulse Rate 83 Respiratory Rate 17 9 L Blood Pressure 109/51 L Pulse Oximetry 98 Intake & Output 05/04/18 05/05/18 05/05/18 18:59 06:59 18:59 Intake Total 1500 / 1500 1350 / 1350 50 / 50 Output Total 50 / 50 Balance 1450 / 1450 1350 / 1350 50 / 50 Weight 75.6 kg Intake: IV 950 / 950 1350 / 1350 50 / 50 LR 1000 mL Inj 1,000 ML @ 80 1000 / 1000 mls/hr IV.CONT .[id number] [facility] Rx# :[id number] LR 1000 mL Inj 1,000 ML @ 30 900 / 900 mls/hr IV.SIG .Q24H [facility] Rx#: [id number] Vancomycin Inj 1,000 MG In NS 250 / 250 Inj 250 ML @ 250 mls/hr IV.SIG Q12H [facility] Rx#:[id number] Ancef 2 GM Premix Inj 2 gm In 50 / 50 100 / 100 50 / 50 50 ml @ 100 mls/hr IV.SIG Q8H [facility] Rx#:[id number] Oral 550 / 550 Output: Estimated Blood Loss 50 / 50 Other: # Voids 2 Date of Last Bowel Movement 04/30/18 04/30/18 04/30/18 - Constitutional no acute distress - Routine HEENT Exam Head: Present: normocephalic, atraumatic - Routine Respiratory Exam Absent: accessory muscle use - Routine Abdominal Exam Present: soft, normoactive bowel sounds. Absent: tenderness, distended - Routine Skin Exam Present: dry, warm - Routine Neurological Exam Present: alert, oriented X3 Results - Labs CBC & Chem 7: 05/05/18 05:06 05/05/18 05:06 Laboratory Results - last 24 hr 05/02/18 05/04/18 05/05/18 16:21 04:46 05:06 Hgb 9.0 L Hct 26.6 L Sodium Potassium Chloride Carbon Dioxide Anion Gap BUN Creatinine Estimated GFR Random Glucose Calcium Calcium Adj for Albumin Iron 21 L TIBC 251 % Saturation 8.4 L Ferritin 101 Total Bilirubin AST ALT Alkaline Phosphatase Total Protein Albumin Rheumatoid Factor Less than 14 05/05/18 05/05/18 05:06 05:06 Hgb Hct Sodium 140 Cancelled Potassium 3.5 Cancelled Chloride 105 Cancelled Carbon Dioxide 29.3 Cancelled Anion Gap 6 Cancelled BUN 3 L Cancelled Creatinine 0.40 L Cancelled Estimated GFR Greater than 89 Cancelled Random Glucose 105 Cancelled Calcium 7.6 L Cancelled Calcium Adj for Albumin Cancelled Iron TIBC % Saturation Ferritin Total Bilirubin 0.6 Cancelled AST 136 H Cancelled ALT 187 H Cancelled Alkaline Phosphatase 306 H Cancelled Total Protein 5.6 L Cancelled Albumin 2.4 L Cancelled Rheumatoid Factor Assessment and Plan (1) Elevated liver enzymes Status: Acute Code(s): R74.8 - Abnormal levels of other serum enzymes - Plan Assessment: Transaminitis: Pt has history of fluctuating LFTs since previous gastric bypass and cholecystectomy at which time she reports her right hepatic duct was severed during surgery. Pt had labs done by her PCP about 3-4 months ago and she states her LFTs were in the 300s, she was sent to Dr. Rainey for follow up. He recommended follow up labs in 6 months. Labs on admission were (04/30) AST-73 ALT-89 Alk phos-173 T bili-0.3 Significantly elevated overnight (05/01) AST-603 ALT-364 Alk phos-280 T bili- 0.5 No hypotensive episodes. No new meds Work up so far: Liver ultrasound --> Mild hepatomegaly. Poor visualization of the pancreas. Possible biliary stricture. MRCP revealed the following- No acute finding is identified to explain the abdominal pain. Intra and extrahepatic bile ducts are within the range of normal since the patient is post cholecystectomy. No common duct stone is present. No pancreas abnormality is identified. Hepatitis panel negative. ASMA negative. RYLAN and AMA pending. Ceruloplasmin pending. AFP- 1.1 Iron-21 TIBC-251 %sat-8.4 Ferritin-101 Alk phos iso enzymes pending. (05/05) Pain to leg is better controlled, planned for DC tomorrow with PT. LFTs trending down, rest of liver work up still pending. No GI symptoms at this time. Plan Pt is stable for discharge from a GI standpoint and labs can be followed up on outpatient Our service will continue to follow during admission Liver work up pending This patient has been seen by myself and Dr. Grier and this note is written on his behalf
[2018-05-05 16:18] LABS: Hematocrit 27.9 % (35.0-46.0); Hemoglobin 9.4 gm/dL (11.6-15.3)
[2018-05-05 19:53] LABS: Ceruloplasmin 30 mg/dL (18-53)
[2018-05-06] MEDS: ceFAZolin 2 GM Premix Inj 2 GM/50 ML PIGGYBACK IV.SIG SCH ×2 (01:51→08:45)
[2018-05-06] MEDS: Montelukast 10 MG Tablet PO SCH (04:06)
[2018-05-06 05:46] LABS: Hematocrit 25.1 % (35.0-46.0); Hemoglobin 8.7 gm/dL (11.6-15.3); Mean Corpuscular HGB Conc 34.7 % (32.0-36.0); Mean Corpuscular Volume 86.4 fL (80.0-100.0); Mean Platelet Volume 8.3 fL (7.0-11.0); Platelet Count 222 th/mm3 (150-450); Red Cell Distribution Width 13.1 % (11.6-17.2); White Blood Count 5.6 th/mm3 (4.0-11.0)
[2018-05-06 06:15] LABS: Albumin 2.4 g/dL (3.4-5.0); Anion Gap 6 meq/L (5-15); Aspartate Aminotransferase 75 U/L (15-37); Blood Urea Nitrogen 4 mg/dL (7-18); Calcium 7.9 mg/dL (8.5-10.1); Carbon Dioxide 31.3 meq/L (21.0-32.0); Chloride 104 meq/L (98-107); Glomerular Filtration Rate Greater Than 89 mL/min (>89); Glucose,Random 97 mg/dL (74-106); Potassium 3.5 meq/L (3.5-5.1); Sodium 141 meq/L (136-145)
[2018-05-06 06:16] LABS: Alanine Aminotransferase 126 U/L (10-53)
[2018-05-06 06:18] LABS: Alkaline Phosphatase 287 U/L (45-117); Total Protein 5.6 g/dL (6.4-8.2)
--- NOTE | 2018-05-06 06:20 | P.PNOP ---
Subjective Interval history: POD 2 s/p ORIF right tibial plateau doing well. states was out of bed with walker yesterday with minimal problems. reports started bending knee and went well. ready to go home Physical Exam Vital signs: Vital Signs 05/05/18 08:00 05/05/18 08:55 05/05/18 11:51 Temperature 97.7 F 98.2 F Pulse Rate 76 83 Respiratory Rate 18 10 L 17 Blood Pressure 99/56 L 109/51 L Pulse Oximetry 96 98 05/05/18 12:13 05/05/18 16:00 05/05/18 20:03 Temperature 98.3 F 98.5 F Pulse Rate 84 89 Respiratory Rate 9 L 18 17 Blood Pressure 113/55 L 111/56 L Pulse Oximetry 98 99 05/05/18 23:27 Temperature 98.2 F Pulse Rate 83 Respiratory Rate 16 Blood Pressure 99/53 L Pulse Oximetry 96 Intake & Output 05/05/18 05/05/18 05/06/18 06:59 18:59 06:59 Intake Total 1350 / 1350 2300 / 2300 50 / 50 Balance 1350 / 1350 2300 / 2300 50 / 50 Weight 75.6 kg Intake: IV 1350 / 1350 1100 / 1100 50 / 50 LR 1000 mL Inj 1,000 ML @ 80 1000 / 1000 1000 / 1000 mls/hr IV.CONT .[id number] [facility] Rx# :[id number] Vancomycin Inj 1,000 MG In NS 250 / 250 Inj 250 ML @ 250 mls/hr IV.SIG Q12H [facility] Rx#:[id number] Ancef 2 GM Premix Inj 2 gm In 100 / 100 100 / 100 50 / 50 50 ml @ 100 mls/hr IV.SIG Q8H [facility] Rx#:[id number] Oral 1200 / 1200 Other: # Voids 5 Date of Last Bowel Movement 04/30/18 04/30/18 04/30/18 Narrative: RLE: dressing clean and dry. intact. removed and incision visualized. clean. no drainage or erythema. nvi distally Results - Labs CBC & Chem 7: 05/06/18 04:36 05/06/18 04:36 Laboratory Results - last 24 hr 05/02/18 05/05/18 05/05/18 16:21 05:06 05:06 WBC RBC Hgb 9.0 L Hct 26.6 L MCV MCH MCHC RDW Plt Count MPV Sodium 140 Potassium 3.5 Chloride 105 Carbon Dioxide 29.3 Anion Gap 6 BUN 3 L Creatinine 0.40 L Estimated GFR Greater than 89 Random Glucose 105 Calcium 7.6 L Calcium Adj for Albumin Total Bilirubin 0.6 AST 136 H ALT 187 H Alkaline Phosphatase 306 H Total Protein 5.6 L Albumin 2.4 L Ceruloplasmin 30 05/05/18 05/05/18 05/06/18 05:06 16:00 04:36 WBC 5.6 RBC 2.90 L Hgb 9.4 L 8.7 L Hct 27.9 L 25.1 L MCV 86.4 MCH 30.0 MCHC 34.7 RDW 13.1 Plt Count 222 MPV 8.3 Sodium Cancelled Potassium Cancelled Chloride Cancelled Carbon Dioxide Cancelled Anion Gap Cancelled BUN Cancelled Creatinine Cancelled Estimated GFR Cancelled Random Glucose Cancelled Calcium Cancelled Calcium Adj for Albumin Cancelled Total Bilirubin Cancelled AST Cancelled ALT Cancelled Alkaline Phosphatase Cancelled Total Protein Cancelled Albumin Cancelled Ceruloplasmin 05/06/18 04:36 WBC RBC Hgb Hct MCV MCH MCHC RDW Plt Count MPV Sodium 141 Potassium 3.5 Chloride 104 Carbon Dioxide 31.3 Anion Gap 6 BUN 4 L Creatinine 0.47 L Estimated GFR Greater than 89 Random Glucose 97 Calcium 7.9 L Calcium Adj for Albumin Total Bilirubin 0.4 AST 75 H ALT 126 H Alkaline Phosphatase 287 H Total Protein 5.6 L Albumin 2.4 L Ceruloplasmin Assessment and Plan - Problem List (1) Closed bicondylar fracture of right tibia Code(s): S82.141A - Displaced bicondylar fracture of right tibia, initial encounter for closed fracture Status: Acute - Assessment and Plan 1) Right Tibial Plateau Fx s/p ORIF - POD 2 -NWB -maintain knee brace; remove with PT -PROM 0-90deg -no quad sets or leg lifts -elevate -ice -ortho surgeries complete -work with therpay today on ambulating -home with C today -ortho cleared for DC -DVT prophylaxis with lovenox. will DC with xarelto -scripts on chart -f/u with [facility] or [facility] in 2 weeks - patient received tramadol rx on 04/01. we will be assuming care of pain meds at this point moving forward. [employer] Prescription Drug Monitoring Database has been queried and verified prior to prescribing the controlled substance. Acute pain exception. This patient has normal, predicted, physiological, and time limited response to an adverse mechanical stimulus associated with surgery, trauma, or acute illness as described in my notes. There is a lack of alternative treatment options other than to include the prescribed narcotic treatment for this condition.
[2018-05-06 06:22] VITALS: O2SAT 97
[2018-05-06] MEDS: Levothyroxine 112 MCG Tablet PO SCH (06:29)
--- NOTE | 2018-05-06 08:22 | P.PNFP ---
Subjective Interval history: Patient seen and examined today. Pain in right leg stable. No new numbness, tingling, coolness of foot. Able to move right foot. Denies nausea, vomiting, fever, chills, abdominal pain, chest pain, shortness of breath , lightheadedness, dizziness, changes in bowel or bladder habits. Patient eager to go home. No acute events over night. No other complaints today. <Mike Mendoza - 05/06/18 10:34> Results - Labs Result diagrams: 05/06/18 04:36 05/06/18 04:36 <Timmy Santana - 05/09/18 15:08> Abnormal lab results 05/05/18 05/06/18 05/06/18 Range/Units 16:00 04:36 04:36 RBC 2.90 L (4.00-5.30) mil/mm3 Hgb 9.4 L 8.7 L (11.6-15.3) gm/dL Hct 27.9 L 25.1 L (35.0-46.0) % BUN 4 L (7-18) mg/dL Creatinine 0.47 L (0.50-1.00) mg/dL Calcium 7.9 L (8.5-10.1) mg/dL AST 75 H (15-37) U/L ALT 126 H (10-53) U/L Alkaline Phosphatase 287 H (45-117) U/L Total Protein 5.6 L (6.4-8.2) g/dL Albumin 2.4 L (3.4-5.0) g/dL Short CBC 05/05/18 05/06/18 Range/Units 16:00 04:36 WBC 5.6 (4.0-11.0) th/mm3 Hgb 9.4 L 8.7 L (11.6-15.3) gm/dL Hct 27.9 L 25.1 L (35.0-46.0) % Plt Count 222 (150-450) th/mm3 BMP 05/06/18 04:36 Sodium 141 Potassium 3.5 Chloride 104 Carbon Dioxide 31.3 BUN 4 L Creatinine 0.47 L Calcium 7.9 L Liver Function 05/06/18 Range/Units 04:36 Total Bilirubin 0.4 (0.2-1.0) mg/dL AST 75 H (15-37) U/L ALT 126 H (10-53) U/L Alkaline Phosphatase 287 H (45-117) U/L Albumin 2.4 L (3.4-5.0) g/dL <Mike Mendoza - 05/06/18 08:22> Physical Exam Vital signs: Vital Signs 05/05/18 08:55 05/05/18 11:51 05/05/18 12:13 Temperature 98.2 F Pulse Rate 83 Respiratory Rate 10 L 17 9 L Blood Pressure 109/51 L Pulse Oximetry 98 05/05/18 16:00 05/05/18 20:03 05/05/18 23:27 Temperature 98.3 F 98.5 F 98.2 F Pulse Rate 84 89 83 Respiratory Rate 18 17 16 Blood Pressure 113/55 L 111/56 L 99/53 L Pulse Oximetry 98 99 96 05/06/18 04:42 Temperature 98.2 F Pulse Rate 69 Respiratory Rate 16 Blood Pressure 104/59 L Pulse Oximetry 97 Intake & Output 05/05/18 05/06/18 05/06/18 18:59 06:59 18:59 Intake Total 2300 / 2300 1010 / 1010 Balance 2300 / 2300 1010 / 1010 Weight 75.1 kg Intake: IV 1100 / 1100 50 / 50 LR 1000 mL Inj 1,000 ML @ 80 1000 / 1000 mls/hr IV.CONT .[id number] [facility] Rx# :[id number] Ancef 2 GM Premix Inj 2 gm In 100 / 100 50 / 50 50 ml @ 100 mls/hr IV.SIG Q8H [facility] Rx#:[id number] Oral 1200 / 1200 960 / 960 Other: # Voids 5 4 Date of Last Bowel Movement 04/30/18 04/30/18 # Bowel Movements 0 <Mike Mendoza - 05/06/18 08:22> Narrative: General: Well-developed, alert, and in no acute distress. Appears stated age HEENT: Atraumatic, moist mucous membranes Neck: Supple, trachea midline Cardiac: Regular rate and rhythm without murmur Pulmonary: Non-labored breathing. Lungs clear to auscultation bilaterally with good air movement Abdomen: Normal bowel sounds, soft and non-tender without rebound or guarding Extremities: Mild right sided pedal edema, 2+ pedal pulses, capillary refill less than 2 seconds. Neurovascularly intact distal to the injury. Brace is in place over the right leg. <Mike Mendoza - 05/06/18 10:34> Assessment and Plan - Assessment (1) Closed fracture of proximal end of right tibia Code(s): S82.101A - Unspecified fracture of upper end of right tibia, initial encounter for closed fracture Status: Acute (2) Elevated liver enzymes Code(s): R74.8 - Abnormal levels of other serum enzymes Status: Acute (3) Hypothyroid Code(s): E03.9 - Hypothyroidism, unspecified Status: Acute (4) Sjogrens syndrome Code(s): M35.00 - Sicca syndrome, unspecified Status: Acute (5) Lupus Code(s): L93.0 - Discoid lupus erythematosus Status: Acute <Timmy Santana - 05/09/18 15:08> (1) Closed fracture of proximal end of right tibia Code(s): S82.101A - Unspecified fracture of upper end of right tibia, initial encounter for closed fracture Status: Acute Plan: POD2 ORIF of R tibial plateau fracture -Doing well -Pain controlled -Continue PT -Continue DVT prophylaxis with Lovenox -Discharge home with Xarelto -Keep foot iced and elevated -No weight-bearing -Follow up with Dr. Archibald's office in 2 weeks (2) Elevated liver enzymes Code(s): R74.8 - Abnormal levels of other serum enzymes Status: Acute Plan: Elevated liver enzymes. 05/05/18 AST 136 ALT 187 alk phos 306, downtrending. Hepatitis panel negative. She does report history of liver damage secondary to a "nicked hepatic duct" during a cholecystectomy. Ultrasound shows mild hepatomegaly. Lowest MAP was 61, making shock liver unlikely. LFTS downtrending. -GI following * Stable for discharge per GI standpoint * Liver workup pending * Autoimmune workup pending (3) Hypothyroid Code(s): E03.9 - Hypothyroidism, unspecified Status: Acute Plan: History of hypothyroidism -Continue levothyroxine 112 mcg daily -Normal TSH (4) Sjogrens syndrome Code(s): M35.00 - Sicca syndrome, unspecified Status: Acute Plan: History of Sjogren's. -Monitor and treat symptoms as needed (5) Lupus Code(s): L93.0 - Discoid lupus erythematosus Status: Acute Plan: History of lupus. -Continue home medications, CellCept, Plaquenil -Reports no current symptoms <Mike Mendoza - 05/06/18 10:39> - Assessment and Plan 43 y/o F presented with a right tibial plateau fracture found to have elevated liver enzymes. She is POD1 ORIF right tibial plateau. GI was consulted due to elevated liver enzymes that are now downtrending. Autoimmune labs are pending. Possible discharge with PT tomorrow 05/06/2018. Fluids: Adequate p.o. intake Electrolytes: monitor and replete as needed Nutrition: Regular diet GI prophylaxis: not indicated VTE prophylaxis: Lovenox <Mike Mendoza - 05/06/18 08:22> - Attending Attestation See the residents documentation for details. I saw and evaluated the patient regarding the gould portions of this evaluation and agree with the residents findings and plans as written. Parts of this note were created using [employer] voice recognition software program. While efforts were made to correct any mistakes made by this software, some mistakes, errors, and omissions may remain in the final note that were not caught when the note was originally created. Plan of care was discussed and agreed upon with the patient as specifically documented in the above note. An opportunity to ask questions with explanation was provided. Patient voiced understanding on all information reviewed and discussed. <Timmy Santana - 05/09/18 15:08> <Mike Mendoza - Last Filed: 05/06/18 10:39> (1) Closed fracture of proximal end of right tibia Qualifiers: Encounter type: initial encounter Fracture morphology: unspecified fracture morphology Qualified Code(s): S82.101A - Unspecified fracture of upper end of right tibia, initial encounter for closed fracture <Timmy Santana - Last Filed: 05/09/18 15:08> (1) Closed fracture of proximal end of right tibia Qualifiers: Encounter type: initial encounter Fracture morphology: unspecified fracture morphology Qualified Code(s): S82.101A - Unspecified fracture of upper end of right tibia, initial encounter for closed fracture <Mike Mendoza - Last Filed: 05/06/18 10:39> (1) Closed fracture of proximal end of right tibia Qualifiers: Encounter type: initial encounter Fracture morphology: unspecified fracture morphology Qualified Code(s): S82.101A - Unspecified fracture of upper end of right tibia, initial encounter for closed fracture <Timmy Santana - Last Filed: 05/09/18 15:08> (1) Closed fracture of proximal end of right tibia Qualifiers: Encounter type: initial encounter Fracture morphology: unspecified fracture morphology Qualified Code(s): S82.101A - Unspecified fracture of upper end of right tibia, initial encounter for closed fracture
[2018-05-06] MEDS: Pilocarpine HCl 5 MG Tablet PO SCH (08:29)
[2018-05-06] MEDS: Senna/Docusate Sodium 8.6/50 MG Tablet PO SCH (08:29)
[2018-05-06] MEDS: Hydroxychloroquine 200 MG Tablet PO SCH (08:29)
[2018-05-06] MEDS: Enoxaparin Inj 40 MG/0.4 ML Syringe SQ SCH (08:29)
[2018-05-06] MEDS: Calcium/Vitamin D 250/125 MG Tablet PO SCH (08:29)
[2018-05-06 09:30] VITALS: BP 110/58; PULSE 67; RESP 18; TEMP 98.1
[2018-05-06 09:52] LABS: DS DNA Ab (Crithidia) NEGATIVE (NEGATIVE)
[2018-05-06] MEDS: Docusate Sodium Liq 100 MG/10 ML UDC PO SCH (12:43)
[2018-05-07 13:52] LABS: Alk Phos Total Isoenzymes 279 U/L (33-115)
[2018-05-07 23:53] LABS: Alk Phos Bone Isoenzymes 26 % (28-66); Alk Phos Intestine Isoenzymes 0 % (1-24); Alk Phos Liver Isoenzymes 74 % (25-69); Alk Phos MacroHep Isoenzyme ND % (()); Alk Phos Placental Isoenzymes 0 % (0)
== END 2018-05-06 12:29 | disposition home health service (06) ==
LOC: NEPE 16:04 → NEDA 19:56 → N06 21:15
PROVIDERS: ADMIT Family Medicine; ATTEND Family Medicine